=== PATIENT | female | born 1975 | race Two or more races ===

== ENCOUNTER → 2024-02-18 | Outpatient (CLI) | payer BC, SELFPAY ==
--- NOTE | 2024-02-18 09:15 | XR_ITS ---
Examination: Screening digital mammography, bilateral Computer aided detection 3-D breast Tomosynthesis, bilateral Date and time of exam: February 18, 2024 0903 hours Compared to mammograms dating to March 31, 2017 Indication: Screening Technique: Nonmagnified MLO, CC views of the breasts to been obtained, reconstructed from 3-D Tomosynthesis images. R2 computer aided detection program utilized for evaluation of suspicious masses and/or abnormal calcifications. 3-D Tomosynthesis images obtained. Findings: Scattered areas of fibroglandular density. Benign calcifications No interval suspicious masses Impression: BI-RADS category II: Benign Findings. Recommend 1 year follow-up mammogram.
[2024-02-18 10:40] LABS: Glucose Estimated Average 108 mg/dL (80-131); Hemoglobin A1C 5.4 % Hgb (4.8-6.0)
[2024-02-18 10:47] LABS: Alanine Aminotransferase 24 U/L (10-49); Albumin, Serum 4.3 gm/dL (3.5-5.0); Albumin/Globulin Ratio 1.4 (1.2-2.2); Alkaline Phosphatase 92 U/L (46-116); Anion Gap 5 (7-16); Aspartate Amino Transferase 16 U/L (0-34); BUN/Creatinine Ratio 22 Ratio (12-20); Bilirubin,Total 0.5 mg/dL (0.3-1.2); Blood Urea Nitrogen 13 mg/dL (9-23); Cardiac Risk Estimate 4.5 RATIO (3.7-5.6); Chloride 104 mMol/L (98-107); Cholesterol 153 mg/dL (132-200); Creatinine (Component) 0.6 mg/dL (0.6-1.3); Free T4 (Free Thyroxine) 1.36 ng/dL (0.89-1.76); Globulin 3.1 gm/dL (2.3-3.5); Glucose 95 mg/dL (74-106); HDL Cholesterol 34 mg/dL (40-60); LDL Cholesterol,Calculated 91 mg/dL (0-130); Osmolality,Calculated 272 (275-295); Potassium 4.2 mMol/L (3.4-5.1); Sodium 136 mMol/L (136-145); Thyroid Stimulating Hormone 0.54 uIU/mL (0.55-4.78); Total Protein 7.4 gm/dL (5.7-8.2); Triglycerides 140 mg/dL (30-150); eGFR > 60 See Note
[2024-02-18 11:13] LABS: Creatinine MALB Rnd Ur 136 mg/dL (30-125); Microalbumin Creat Ratio 38 mg/gCrea (<30); Microalbumin, Random Urine 51 mg/L (0-300)
== END | disposition home or self-care (01) ==
LOC: CDIM 08:52 → COPL 09:11
PROVIDERS: PCP Specialist; Referring Provider Specialist; Visit Provider Specialist
DX: Z12.31 Encounter for screening mammogram for malignant neoplasm of breast (principal); R92.323 Mammographic fibroglandular density, bilateral breasts; R92.1 Mammographic calcification found on diagnostic imaging of breast; E11.65 Type 2 diabetes mellitus with hyperglycemia; E03.8 Other specified hypothyroidism; E78.2 Mixed hyperlipidemia
CPT/HCPCS: 36415; 77063; 77067; 80053; 80061; 82043; 82570; 83036; 84439; 84443

== ENCOUNTER → 2024-03-03 | Outpatient (CLI) | payer BC, SELFPAY ==
--- NOTE | 2024-03-03 14:18 | XR_ITS ---
Examination: Shoulder,left, 3 views Technique: Shoulder AP internal rotation, AP external rotation, Y view shoulder, 3 views Exam date and time :March 03, 2024 1506 hours INDICATIONS: Left shoulder pain beginning 3 years ago. FINDINGS: Moderate osteopenia No shoulder fracture or dislocation Moderate narrowing glenohumeral joint Mild calcific tendinitis IMPRESSION: Moderate narrowing glenohumeral joint Mild calcific tendinitis
--- NOTE | 2024-03-03 14:19 | XR_ITS ---
Examination: Left elbow 3 views Technique: Elbow AP, oblique, lateral 3 views Exam date and time: March 03, 2024 1506 hours INDICATIONS: Left elbow pain beginning 6 years ago. FINDINGS: Mild elbow osteoarthritis Old bone density near the medial aspect of the ulna Lateral elbow epicondylitis, ossification lateral humeral condyle No acute fracture IMPRESSION: Mild elbow osteoarthritis Lateral elbow epicondylitis.
== END | disposition home or self-care (01) ==
PROVIDERS: PCP Specialist; Referring Provider Specialist; Visit Provider Specialist
DX: M25.812 Other specified joint disorders, left shoulder (principal); M75.32 Calcific tendinitis of left shoulder; M19.022 Primary osteoarthritis, left elbow; M77.12 Lateral epicondylitis, left elbow
CPT/HCPCS: 73030; 73080

== ENCOUNTER → 2024-07-01 | Outpatient (CLI) | payer BC, SELFPAY ==
[2024-07-01 10:26] LABS: Basophils % (Auto) 1 % (0-2.5); Eosinophils # (Auto) 0.1 Thou/mm3 (0.0-0.5); Eosinophils % (Auto) 1 % (0-10); Hematocrit 35.6 % (36.0-46.0); Hemoglobin 11.7 g/dL (12.0-16.0); Immature Granulocytes % (Auto) 0 % (0-0); Immature Granulocytes Auto 0.01 Thou/mm3 (0.00-0.00); Lymphocytes # (Auto) 1.2 Thou/mm3 (1.0-4.8); Lymphocytes % (Auto) 30 % (10-50); Mean Corpuscular HGB Conc 32.9 g/dl (31.0-37.0); Mean Corpuscular Hemoglobin 27.7 pg (25.0-35.0); Mean Corpuscular Volume 84 fL (80-100); Monocytes # (Auto) 0.3 Thou/mm3 (0.0-0.8); Monocytes % (Auto) 6 % (0-12); Neutrophils # (Auto) 2.6 Thou/mm3 (1.8-7.7); Neutrophils % (Auto) 62 % (37-80); Nucleated Red Blood Cell % 0 /100 WBC (0); Platelet Count 157 Thou/mm3 (140-440); RDW Standard Deviation 45.1 fL (36.4-46.3); Red Blood Count 4.23 Miln/mm3 (4.00-5.20); White Blood Count 4.2 Thou/mm3 (3.6-11.0)
[2024-07-01 10:36] LABS: Glucose Estimated Average 105 mg/dL (80-131); Hemoglobin A1C 5.3 % Hgb (4.8-6.0); Parathyroid Hormone Intact 59.3 pg/ml (18.5-88.0)
[2024-07-01 10:43] LABS: Creatinine MALB Rnd Ur 124 mg/dL (30-125); Microalbumin Creat Ratio 33 mg/gCrea (<30); Microalbumin, Random Urine 41 mg/L (0-300)
[2024-07-01 12:10] LABS: Alanine Aminotransferase 26 U/L (10-49); Albumin, Serum 4.1 gm/dL (3.5-5.0); Albumin/Globulin Ratio 1.5 (1.2-2.2); Alkaline Phosphatase 88 U/L (46-116); Anion Gap 7 (7-16); Aspartate Amino Transferase 19 U/L (0-34); BUN/Creatinine Ratio 25 Ratio (12-20); Bilirubin,Total 0.5 mg/dL (0.3-1.2); Blood Urea Nitrogen 15 mg/dL (9-23); Calcium 8.4 mg/dL (8.3-10.6); Calcium (Corrected) 8.4 mg/dL (8.5-10.1); Carbon Dioxide 28.1 mMol/L (20.0-31.0); Cardiac Risk Estimate 4.1 RATIO (3.7-5.6); Chloride 106 mMol/L (98-107); Cholesterol 159 mg/dL (132-200); Creatinine (Component) 0.6 mg/dL (0.6-1.3); Free T3 3.7 pg/mL (2.3-4.2); Free T4 (Free Thyroxine) 1.57 ng/dL (0.89-1.76); Globulin 2.8 gm/dL (2.3-3.5); Glucose 95 mg/dL (74-106); HDL Cholesterol 39 mg/dL (40-60); LDL Cholesterol,Calculated 101 mg/dL (0-130); Osmolality,Calculated 282 (275-295); Potassium 4.9 mMol/L (3.4-5.1); Sodium 141 mMol/L (136-145); Thyroid Stimulating Hormone 0.35 uIU/mL (0.55-4.78); Total Protein 6.9 gm/dL (5.7-8.2); Triglycerides 97 mg/dL (30-150); eGFR > 60 See Note
[2024-07-06 11:17] LABS: Thyroglobulin Antibodies <1 IU/mL (< OR = 1)
[2024-07-07 06:47] LABS: T3,Total* 111 ng/dL (76-181); Thyroglobulin 0.9 ng/mL; Vitamin D, 25-OH, D2 <4 ng/mL; Vitamin D, 25-OH, D3 19 ng/mL; Vitamin D, 25-OH, Total 19 ng/mL (30-100)
== END | disposition home or self-care (01) ==
LOC: COPL 09:09
PROVIDERS: PCP Specialist; Referring Provider Specialist; Visit Provider Internal Medicine Endocrinology, Diabetes & Metabolism
DX: E11.65 Type 2 diabetes mellitus with hyperglycemia (principal); E03.8 Other specified hypothyroidism; E78.2 Mixed hyperlipidemia; K76.0 Fatty (change of) liver, not elsewhere classified; E20.819 Hypoparathyroidism due to impaired parathyroid hormone secretion, unspecified; C73 Malignant neoplasm of thyroid gland; E20.9 Hypoparathyroidism, unspecified
CPT/HCPCS: 36415; 80053; 80061; 82043; 82105; 82306; 82570; 83036; 83970; 84432; 84439; 84443; 84480; 84481; 85025; 86800

== ENCOUNTER → 2024-07-13 | Outpatient (CLI) | payer BC, SELFPAY ==
--- NOTE | 2024-07-13 11:30 | XR_ITS ---
Examination: Thyroid sonography complete TECHNIQUE: Grayscale sonographic images thyroid lobes with color flow analysis Exam date and time: The 2024 1137 hours Comparison January 13, 2024 INDICATIONS: Diagnosis thyroid cancer thyroidectomy May 2023, post radiation therapy, restaging FINDINGS: No soft tissue mass in the thyroid bed No lymphadenopathy IMPRESSION: No soft tissue mass in the thyroid bed
== END | disposition home or self-care (01) ==
PROVIDERS: PCP Specialist; Referring Provider Internal Medicine Endocrinology, Diabetes & Metabolism; Visit Provider Internal Medicine Endocrinology, Diabetes & Metabolism
DX: C73 Malignant neoplasm of thyroid gland (principal)
CPT/HCPCS: 76536

== ENCOUNTER 2024-08-20 06:12 | Emergency (ER) | payer BC, SELFPAY ==
[2024-08-20 06:20] VITALS: BP 149/94; PULSE 81; RESP 18; TEMP 36.6; O2SAT 98
[2024-08-20 06:26] LABS: Collection Type, Urine Clean Catch
[2024-08-20 06:44] LABS: Bilirubin,Urine 1+ (Negative); Blood,Urine Trace (Negative); Clarity,Urine Clear (Clear/Hazy); Color,Urine Drk-Yellow (Lt Yel-Yel); Glucose, Urine Negative (Negative); Ketones,Urine Negative (Negative); Leukocyte Esterase,Urine Positive (Negative); Nitrite,Urine Positive (Negative); PH,Urine 6.5 (5.0-7.0); Protein,Urine 1+ (Neg - Trace); RBC,Urine 31 /hpf (0-3); Specific Gravity,Urine 1.012 (1.001-1.035); Squamous Epithelial Cell,Urine 1 /hpf (0-5); WBC,Urine 48 /hpf (0-5)
[2024-08-20 06:49] LABS: Culture Indicated,Urine Yes; HCG Qualitative,Urine Negative
--- NOTE | 2024-08-20 06:55 | EDNOTE_ITS ---
<Statement entered by Rhoda Stiles MD - 08/31/24 02:41> As co-signing physician, I was present and available for consult prn. I concur with the plan and care as documented by the midlevel provider. ED Female Urogenital RME/HPI General Chief complaint: Urogenital-Female Stated complaint: PAIN IN URINATION Time Seen by Provider: 08/20/24 06:19 Arrival date/time: 08/20/24 06:12 49-year-old female presents to the emergency department today for complaints of dysuria since midnight Limitations: no limitations Related Data Home Medications ?Medication ?Instructions ?Recorded ?Confirmed metformin 500 mg tablet 500 mg PO DAILY 04/19/1902/10 methimazole 10 mg tablet 10 mg PO DAILY 04/19/1905/22 Previous Rx's ?Medication ?Instructions ?Recorded bacitracin 500 unit/gram topical 1 applic topical BID PRN burn #28 01/09/24 ointment grams ibuprofen 600 mg tablet 600 mg PO Q6H PRN pain #30 t abs 01/09/24 ciprofloxacin HCl 500 mg tablet 500 mg PO BID 7 days # 14 tabs 08/20/24 ibuprofen 800 mg tablet 800 mg PO TID PRN pain #30 t abs 08/20/24 phenazopyridine 100 mg tablet 100 mg PO TID 2 days #6 tabs 08/20/24 (Pyridium) Allergies Allergy/AdvReac Type Severity Reaction Status Date / Time hydrocodone Allergy Mild TACHYCARCIA Verified 08/20/24 06:13 Review of Systems Review of Systems Systems Reviewed: All systems reviewed, normal except as documented Constitutional Constitutional: Reports system reviewed and no additional complaints, except as documented, Denies fever(s) and Denies headache(s) Eyes Eyes: Reports system reviewed and no additional complaints, except as documented and Denies blurry vision ENT Ears, Nose, Mouth, and Throat: Reports system reviewed and no additional complaints, except as documented, Denies headache(s), Denies nasal congestion and Denies nasal discharge Cardiovascular Cardiovascular: Reports system reviewed and no additional complaints, except as documented, Denies chest pain and Denies dyspnea Respiratory Respiratory: Reports system reviewed and no additional complaints, except as documented, Denies chest congestion, Denies cough and Denies dyspnea Gastrointestinal Gastrointestinal: Reports system reviewed and no additional complaints, except as documented and Denies abdominal pain Genitourinary Genitourinary: Reports system reviewed and no additional complaints, except as documented, Denies abnormal vaginal bleeding, Reports dysuria, Denies flank pain, Denies pelvic pain, Reports post void dribbling, Reports urinary urgency, Denies vaginal discharge, Denies vaginal dryness, Denies vaginal odor and Denies vaginal pruritus Integumentary/Breasts Skin/Breast: Reports system reviewed and no additional complaints, except as documented and Denies rash Neurologic Neurologic: Reports system reviewed and no additional complaints, except as documented, Reports as per HPI and Denies headache(s) Past Medical History Past Medical History NEUROLOGIC: Negative Neurological Disorders or Seizures CARDIAC: Negative Cardiac Disorders, Congestive Heart Failure, Edema or Cellulitis RESPIRATORY: Negative Chronic Obstructive Pulmonary Disease (COPD) GASTROINTESTINAL: Negative Gastrointestinal Disorders or Hepatitis GENITOURINARY: Positive Kidney Stones (15 YEARS AGO); Negative Genitourinary Disorders or Renal Disease REPRODUCTIVE: Positive Previous Pregnancies (A1) MUSCULOSKELETAL: Positive Carpal Tunnel Syndrome (BILATERAL); Negative Musculoskeletal Disorders ENDOCRINE: Positive Endocrine Disorders, Diabetes Mellitus Type 2 and Hypothyroidism; Negative Diabetes Mellitus Type 1 HEMATOLOGIC: Negative Blood Disorders OTHER HISTORY: Positive Hospitalization; Negative Autoimmune Disease, Shingles, Falls, Blood Transfusions, Blood Transfusion Reaction, Anesthesia Reactions, Chemotherapy, Radiation Therapy, MRSA, Chicken Pox, Measles, Mumps or Cancer Family History FAMILY HISTORY: Positive Family Cardiac Disorders (FATHER (MD),MOTHER (HTN)) and Family Surgery (MOTHER); Negative Family Psychiatric Problems, Family Respiratory Disorders, Family Gastrointestinal Problems, Family Cancer or Family Anesthesia Reaction Surgical History SURGICAL: Positive Thyroidectomy, Hysterectomy and Section; Negative Cardiac Surgery or Pacemaker Social History SMOKING STATUS: Never smoker SUBSTANCE USE: does not use ED Exam General Limitations: Present no limitations General appearance: Present alert and in no apparent distress Head Head exam: Present atraumatic Eye Eye exam: Present normal appearance, PERRL and EOMI; Absent conjunctival injection ENT ENT exam: Present normal exam, normal oropharynx and mucous membranes moist Neck Neck exam: Present normal inspection, full ROM and trachea midline Chest Chest inspection: Present normal inspection and symmetric chest wall rise Respiratory Respiratory exam: Present normal lung sounds bilaterally Cardiovascular Cardiovascular exam: Present regular rate, normal rhythm and normal heart sounds Abdominal Exam Abdominal exam: Present soft and normal bowel sounds; Absent distention, tenderness, guarding, rebound or rigidity Extremities Exam Extremities exam: Present normal inspection and full ROM Back Exam Back exam: Present normal inspection and full ROM Neurological Exam Neurological exam: Present alert, oriented X3, CN II-XII intact, normal gait and reflexes normal; Absent motor sensory deficit Psychiatric Psychiatric exam: Present normal affect and normal mood Skin Skin exam: Present warm, dry, intact and normal color; Absent rash Course Quality Measures none Orders Category Date Time Status HCG Qualitative,Urine Stat Lab 08/20/24 06:23 Completed UA, C/S IF [Urinalysis, C/S if Indicated] Stat Lab 08/20/24 06:23 Completed Urine Culture Stat Lab 08/20/24 06:23 Received Ibuprofen Tab [Motrin Tab] Med 08/20/24 06:56 Once 800 mg PO X1 ONE Lidocaine 1% 20 ml [Xylocaine 1% 20 ML] Med 08/20/24 06:52 Discontinued 2.1 ml INFL X1 ONE cefTRIAXone [Rocephin] Med 08/20/24 06:52 Discontinued 1,000 mg IM X1 ONE Vital Signs Vital signs: Vital Signs Temperature 98 F 08/20/24 06:20 Pulse Rate 81 08/20/24 06:20 Respiratory Rate 18 08/20/24 06:20 Blood Pressure 149/94 H 08/20/24 06:20 Pulse Oximetry (%) 98 08/20/24 06:20 Oxygen Delivery Method Room Air 08/20/24 06:20 O2 saturation 98% room air within normal limits Urogenital - Female MDM Narrative MDM Narrative:: 49-year-old female presents to the emergency department today for complaints of dysuria since midnight Patient data External records reviewed:: [facility] [place] previous records Clinical information provided by:: patient Social determinants that could affect healthcare access:: none Patient has the following chronic illnesses:: None How is presenting disease/condition affected by chronic disease/condition?: no chronic disease Evaluation data The following diagnostics were reviewed and interpreted by me:: lab results Lab and/or radiology exams considered but not ordered:: Obtain Interpretation Summary: Reviewed by me Medications / Prescriptions Medications or Prescriptions considered but not ordered:: Given Medication administrations:: Medication Administration History Ibuprofen (Ibuprofen Tab 400 Mg Tablet) 800 mg PO X1 ONE Stop: 08/20/24 06:57 Discontinued Medications Ceftriaxone Sodium (Ceftriaxone Sod Inj 1,000 Mg Vial) 1,000 mg IM X1 ONE Stop: 08/20/24 06:53 Lidocaine HCl (Lidocaine Hcl 1% 20 Ml Vial) 2.1 ml INFL X1 ONE Stop: 08/20/24 06:53 Given Consultations Consultation(s) initiated? (list below): No Diagnosis Urogenital Female Differential Diagnosis: urinary tract infection and cystitis Most likely diagnosis given after review of the tests above:: UTI Admission Indicated Admission indicated?: not indicated Admission Request Was there a request for admission?: No Disposition Plan Disposition Plan: Discharge Discharge Attestation Discharge Attestation: The patient and all family members were given an opportunity to ask questions and understood the discharge instructions. Discharge instructions specifically effects, indications for sooner follow up or return to the emergency department, and the expected course of current diagnosis. Patient condition: Stable Discharge Plan Plan Patient Disposition: HOME (Self Care) Discharge Disposition comment: Stable Prescriptions/Referrals Prescriptions/Med Rec: New ibuprofen 800 mg tablet 800 mg PO TID PRN (Reason: pain) Qty: 30 0RF ciprofloxacin HCl 500 mg tablet 500 mg PO BID 7 Days Qty: 14 0RF phenazopyridine [Pyridium] 100 mg tablet 100 mg PO TID 2 Days Qty: 6 0RF No Action metformin 500 mg Tablet 500 mg PO DAILY methimazole 10 mg Tablet 10 mg PO DAILY bacitracin 500 unit/gram ointment 1 applic topical BID PRN (Reason: burn) Qty: 28 0RF ibuprofen 600 mg tablet 600 mg PO Q6H PRN (Reason: pain) Qty: 30 0RF Problem List Clinical Impression: UTI (urinary tract infection) Patient/Caregiver Discharge Instructions Education Materials: Understanding Urinary Tract ... Additional Instructions: Please follow up with your primary care doctor in the next 24-48hrs for any worsening symptoms return here immediately Print Language: Swedish Stand Alone Forms: Veronica Award Info., Patient Portal Info Letter PA/VIDEO [employer] FLOORMAN Supervising Physician PA/VIDEO [employer] FLOORMAN Supervising Physician: Dr stiles
[2024-08-20] MEDS: cefTRIAXone SOD INJ 1,000 MG VIAL 1000 MG IM (07:05)
[2024-08-20] MEDS: LIDOCAINE HCL 1% 20 ML VIAL 2.1 ML INFL (07:06)
[2024-08-20] MEDS: IBUPROFEN TAB 400 MG TABLET 800 MG PO (07:07)
== END 2024-08-20 08:53 | disposition home or self-care (01) ==
LOC: SERX 08:20
PROVIDERS: Nurse Practitioner Primary Care; Emergency Provider Emergency Medicine
DX: N39.0 Urinary tract infection, site not specified (principal)
CPT/HCPCS: 81001; 81025; 87086; 96372; 99283; J0696; J3490; A9270

== ENCOUNTER 2024-08-26 03:55 | Inpatient (IN) | payer BC, SELFPAY ==
[2024-08-26] VITALS (30 sets, daily range): BP systolic 84–120; BP diastolic 54–81; PULSE 58–101; RESP 2–21; TEMP 36.3–36.9; O2SAT 87–100; BMI 34.7
--- NOTE | 2024-08-26 04:39 | XR_ITS ---
Examination: CT abdomen with intravenous contrast CT pelvis with intravenous contrast 2-D coronal reconstructions 2-D sagittal reconstructions Date and time of exam:August 26, 2024 0950 hours Comparison May 18, 2022 INDICATIONS: Epigastric pain nausea vomiting bloody diarrhea today, history kidney stones. CTDI: vol (mGy) 9.45 DLP: (mGycm) 520 Technique: Multiple axial sections of the abdomen and pelvis have been obtained. 64 slice high-resolution scanner used. 3 mm axial sections have been obtained, post intravenous injection 60 cc [id number] 2-D sagittal, coronal reconstructions obtained. Low dose protocols were performed. One or more of the following dose reduction techniques were used; automated exposure control, adjustment of the mA and/or KV according to patient size, use of iterative reconstruction technique. Findings: No focal liver or splenic lesions No gallstones No pancreatic or adrenal mass 1 mm left renal calculi No hydronephrosis or ureteral calculi Normal appendix The entire colon shows wall thickening and hyperemia Retroverted uterus with thickened endometrial stripe No bladder calculi Mild inflammatory change right perianal axial image 234 IMPRESSION: Diffuse nonspecific colitis pattern Mild inflammatory change right perianal Tiny nonobstructing left renal calculi
--- NOTE | 2024-08-26 04:40 | EDRME_ITS ---
Rapid Medical Screening Exam [facility] Arrival date/time: 08/26/24 03:55 49F with history of DM and thyroid cancer (s/p resection) presents to ED with 2 days of bloody N/V and diarrhea, as well as upper ab pain. Patient was recently discharged with Cipro for UTI. Patient denies alcohol/drug use. Chief Complaint: Abdominal Pain Vital signs: Vital Signs Temperature 98.4 F 08/26/24 04:14 Pulse Rate 101 H 08/26/24 04:14 Respiratory Rate 19 08/26/24 04:14 Blood Pressure 100/71 08/26/24 04:14 Pulse Oximetry (%) 98 08/26/24 04:14 Oxygen Delivery Method Room Air 08/26/24 04:14
[2024-08-26] MEDS: PANTOPRAZOLE INJ 40 MG VIAL 80 MG IVP (05:32)
[2024-08-26 05:33] LABS: Lactate (Lactic Acid) 1.7 mMol/L (0.4-2.0)
[2024-08-26] MEDS: ONDANSETRON INJ 2 MG/ML INJ 2 ML 4 MG IV (05:34)
[2024-08-26] MEDS: SODIUM CHLORIDE 0.9% 1000 ML 1,000 ML 999 ML IV ×2 (05:35→09:34)
[2024-08-26 05:54] LABS: Partial Thromboplastin Time 22.9 Seconds (22.0-36.0); Prothrombin Time 11.2 Seconds (9.0-12.2)
[2024-08-26 06:00] LABS: Basophils % (Auto) 0 % (0-2.5); Eosinophils # (Auto) 0.1 Thou/mm3 (0.0-0.5); Eosinophils % (Auto) 1 % (0-10); Hematocrit 33.2 % (36.0-46.0); Hemoglobin 11.1 g/dL (12.0-16.0); Immature Granulocytes % (Auto) 1 % (0-0); Immature Granulocytes Auto 0.04 Thou/mm3 (0.00-0.00); Lymphocytes # (Auto) 1.4 Thou/mm3 (1.0-4.8); Lymphocytes % (Auto) 16 % (10-50); Mean Corpuscular HGB Conc 33.4 g/dl (31.0-37.0); Mean Corpuscular Hemoglobin 26.7 pg (25.0-35.0); Mean Corpuscular Volume 80 fL (80-100); Monocytes # (Auto) 0.3 Thou/mm3 (0.0-0.8); Monocytes % (Auto) 4 % (0-12); Neutrophils # (Auto) 6.5 Thou/mm3 (1.8-7.7); Neutrophils % (Auto) 78 % (37-80); Nucleated Red Blood Cell % 0 /100 WBC (0); Platelet Count 140 Thou/mm3 (140-440); Red Blood Count 4.15 Miln/mm3 (4.00-5.20); White Blood Count 8.4 Thou/mm3 (3.6-11.0)
[2024-08-26 06:27] LABS: Alanine Aminotransferase 20 U/L (10-49); Albumin/Globulin Ratio 1.5 (1.2-2.2); Alcohol, Blood Medical < 10.0 mg/dL (0-10.0); Alkaline Phosphatase 91 U/L (46-116); Anion Gap 13 (7-16); Aspartate Amino Transferase 17 U/L (0-34); BUN/Creatinine Ratio 30 Ratio (12-20); Bilirubin,Total 0.3 mg/dL (0.3-1.2); Blood Urea Nitrogen 21 mg/dL (9-23); Calcium 7.9 mg/dL (8.3-10.6); Calcium (Corrected) 7.9 mg/dL (8.5-10.1); Carbon Dioxide 24.2 mMol/L (20.0-31.0); Chloride 105 mMol/L (98-107); Creatinine (Component) 0.7 mg/dL (0.6-1.3); Globulin 2.7 gm/dL (2.3-3.5); Glucose 181 mg/dL (74-106); Lipase 54 U/L (12-53); Osmolality,Calculated 291 (275-295); Potassium 3.9 mMol/L (3.4-5.1); Procalcitonin < 0.04 ng/ml (0.0-0.49); Sodium 142 mMol/L (136-145); Total Protein 6.7 gm/dL (5.7-8.2); eGFR > 60 See Note
--- NOTE | 2024-08-26 07:29 | EDNOTE_ITS ---
ED General RME/HPI General Chief complaint: Abdominal Pain Stated complaint: ABD PAIN, VOMITING BLOOD FOR AN HOUR Time Seen by Provider: 08/26/24 04:52 Arrival date/time: 08/26/24 03:55 RME / HPI RME / HPI narrative: 08/26/24 03:55 49F with history of DM and thyroid cancer (s/p resection) presents to ED with 2 days of bloody N/V and diarrhea, as well as upper ab pain. Patient was recently discharged with Cipro for UTI. Patient denies alcohol/drug use. DR. HICKEY MAIN ED EVALUATION: 49 year old female presents to the Emergency Department accompanied by her with complaints of nausea, vomiting x4 episodes, diarrhea x2 episodes onset 2 AM today. There is blood in the vomit. She also mentions that she had upper abdominal pain, mainly in the left lower quadrant area. Pain was burning and rated moderate. Patient states yesterday, she was normal, no symptoms. Last meal was last night when she had [employer] for dinner; her whole family had the same food but only the patient was sick at night. Denies any ASA, aleve, or other blood thinners. PMHx: Diabetes takes Ozempic. Social Hx: No tobacco, alcohol, or substance use. Related Data Home Medications ?Medication ?Instructions ?Recorded ?Confirmed metformin 500 mg tablet 500 mg PO DAILY 04/19/1902/10 methimazole 10 mg tablet 10 mg PO DAILY 04/19/1905/22 Previous Rx's ?Medication ?Instructions ?Recorded bacitracin 500 unit/gram topical 1 applic topical BID PRN burn #28 01/09/24 ointment grams ibuprofen 600 mg tablet 600 mg PO Q6H PRN pain #30 t abs 01/09/24 ciprofloxacin HCl 500 mg tablet 500 mg PO BID 7 days # 14 tabs 08/20/24 ibuprofen 800 mg tablet 800 mg PO TID PRN pain #30 t abs 08/20/24 Allergies Allergy/AdvReac Type Severity Reaction Status Date / Time hydrocodone Allergy Mild TACHYCARCIA Verified 08/26/24 03:56 Review of Systems Review of Systems Systems Reviewed: All systems reviewed, normal except as documented Past Medical History Past Medical History GENITOURINARY: Positive Kidney Stones REPRODUCTIVE: Positive Previous Pregnancies MUSCULOSKELETAL: Positive Carpal Tunnel Syndrome ENDOCRINE: Positive Endocrine Disorders, Diabetes Mellitus Type 2 and Hypothyroidism OTHER HISTORY: Positive Hospitalization Family History FAMILY HISTORY: Positive Family Cardiac Disorders and Family Surgery Surgical History SURGICAL: Positive Thyroidectomy, Hysterectomy and Section Social History SMOKING STATUS: Never smoker SUBSTANCE USE: does not use ALCOHOL: Never ED Exam Narrative Physical exam: GENERAL APPEARANCE: AxOx4, generally well-appearing, in moderate pain distress. HEENT: NC, AT. MMM. EOMI, clear conjunctiva, oropharynx clear. NECK: Supple without lymphadenopathy. No stiffness or restricted ROM. HEART: Normal rate and regular rhythm, normal S1/S1, no m/r/g LUNGS: CTAB, moving air well. No crackles or wheezes are heard. ABDOMEN: Mild left upper quadrant tenderness. No guarding. Good bowel sounds heard. BACK: No midline C/T/L spine pain or deformity, No CVAT, no obvious deformity. EXTREMITIES: Without cyanosis, clubbing or edema. MUSCULOSKELETAL: FROM of all major joints, no chest tenderness NEUROLOGICAL: Grossly nonfocal. Alert and oriented, moving all 4 extremities. CN not formally tested but appear grossly intact. Skin: Warm and dry without any rash. Course Quality Measures none Orders Category Date Time Status CT Screening NOW Care 08/26/24 04:39 Active Occult Blood,Stool (Nursing) NOW Care 08/26/24 04:39 Active Occult blood,Gastric (Nursing) NEEDED Care 08/26/24 07:30 Active Consult to Gastroenterology Stat Cons 08/26/24 10:[address] abdomen pelvis w con Stat Exams 08/26/24 04:39 Completed Alcohol, Blood Medical Stat Lab 08/26/24 05:08 Completed CBC Stat Lab 08/26/24 05:08 Completed CMP [Comprehensive Metabolic Panel] Stat Lab 08/26/24 05:08 Completed Drug Screen,Urine Stat Lab 08/26/24 08:29 Completed HCG Qualitative,Urine Stat Lab 08/26/24 08:29 Completed Hemoglobin and Hematocrit Stat Lab 08/26/24 08:50 Completed INR [Prothrombin Time with INR] Stat Lab 08/26/24 05:08 Completed Lactate (Lactic Acid) Stat Lab 08/26/24 05:08 Completed Lipase Stat Lab 08/26/24 05:08 Completed PTT [Partial Thromboplastin Time] Stat Lab 08/26/24 05:08 Completed Procalcitonin Stat Lab 08/26/24 05:08 Completed Stool Culture Stat Lab 08/26/24 04:40 Ordered Stool for WBCs Stat Lab 08/26/24 04:40 Ordered Type and Screen Stat Lab 08/26/24 05:08 Completed Urinalysis, C/S if Indicated Stat Lab 08/26/24 08:29 Completed Ondansetron Inj [Zofran Inj] Med 08/26/24 04:39 Discontinued 4 mg IV X1 ONE Ondansetron Inj [Zofran Inj] Med 08/26/24 08:45 Discontinued 4 mg IVP X1 ONE Pantoprazole Inj [Protonix Inj] Med 08/26/24 04:39 Discontinued 80 mg IVP X1 ONE Pantoprazole/Ns 80Mg IV Premix [Protonix/NS 80mg IV Med 08/26/24 07:49 Active Premix] 80 mg in 100 ml IV X1 Sodium Chloride 0.9% 1000 ml [Ns] 1,000 ml Med 08/26/24 04:39 Discontinued IV 999 mls/hr Sodium Chloride 0.9% 1000 ml [Ns] 1,000 ml Med 08/26/24 08:45 Discontinued IV 999 mls/hr Vital Signs Vital signs: Vital Signs Temperature 98.4 F 08/26/24 04:14 Pulse Rate 101 H 08/26/24 04:14 Respiratory Rate 19 08/26/24 04:14 Blood Pressure 100/71 08/26/24 04:14 Pulse Oximetry (%) 98 08/26/24 04:14 Oxygen Delivery Method Room Air 08/26/24 04:14 Discharge Plan Plan Patient Disposition: Admit Acute Care w/in Hospital Prescriptions/Referrals Prescriptions/Med Rec: No Action metformin 500 mg Tablet 500 mg PO DAILY methimazole 10 mg Tablet 10 mg PO DAILY bacitracin 500 unit/gram ointment 1 applic topical BID PRN (Reason: burn) Qty: 28 0RF ibuprofen 600 mg tablet 600 mg PO Q6H PRN (Reason: pain) Qty: 30 0RF ibuprofen 800 mg tablet 800 mg PO TID PRN (Reason: pain) Qty: 30 0RF ciprofloxacin HCl 500 mg tablet 500 mg PO BID 7 Days Qty: 14 0RF Referrals: Ivan Yu MD [Primary Care Provider] - In 1 week Problem List Clinical Impression: Upper gastrointestinal bleeding Patient/Caregiver Discharge Instructions Print Language: Tamazight Stand Alone Forms: Veronica Award Info., Patient Portal Info Letter MDM Narrative [facility] hospital course: I, Shannan Olivarez, am scribing for and in the presence of Dr. Hickey. Clinical Information Provided by patient and spouse Medical Records Reviewed [facility] Reviewed last ED visit dated 08/20/24 discharged with the following: UTI. Meds/Rx Considered, not Ordered None Labs/Rad/Tests considered, not Ordered None Chronic Illness/Social Conditions Add or document further as needed: PMHx: Diabetes takes Ozempic. Social Hx: No tobacco, alcohol, or substance use. Lab Interpretation Labs: interpreted by me Imaging Radiology reports / interpretation(s): Procedure(s): CT abdomen pelvis w con Accession Number(s): [id number] cc: Ivan Yu MD; Daniel Jesus MD; Markell Casillas PA-C~ Examination: CT abdomen with intravenous contrast CT pelvis with intravenous contrast 2-D coronal reconstructions 2-D sagittal reconstructions Date and time of exam:August 26, 2024 0950 hours Comparison May 18, 2022 INDICATIONS: Epigastric pain nausea vomiting bloody diarrhea today, history kidney stones. CTDI: vol (mGy) 9.45 DLP: (mGycm) 520 Technique: Multiple axial sections of the abdomen and pelvis have been obtained. 64 slice high-resolution scanner used. 3 mm axial sections have been obtained, post intravenous injection 60 cc [id number] 2-D sagittal, coronal reconstructions obtained. Low dose protocols were performed. One or more of the following dose reduction techniques were used; automated exposure control, adjustment of the mA and/or KV according to patient size, use of iterative reconstruction technique. Findings: No focal liver or splenic lesions No gallstones No pancreatic or adrenal mass 1 mm left renal calculi No hydronephrosis or ureteral calculi Normal appendix The entire colon shows wall thickening and hyperemia Retroverted uterus with thickened endometrial stripe No bladder calculi Mild inflammatory change right perianal axial image 234 IMPRESSION: Diffuse nonspecific colitis pattern Mild inflammatory change right perianal Tiny nonobstructing left renal calculi Dictated By: Daniel Jesus MD Medication Administration(s) Medication Administration History Pantoprazole Sodium (Protonix/Ns 80mg Iv Premix) 80 mg in 100 mls @ 10 mls/hr IV X1 ONE Stop: 08/26/24 17:48 Last Admin: 08/26/24 09:35 Dose: 10 mls/hr Documented By: CG Discontinued Medications Sodium Chloride (Ns) 1,000 mls @ 999 mls/hr IV .Q1H1M ONE Stop: 08/26/24 05:39 Last Infusion: 08/26/24 07:01 Dose: Infused Documented By: Admin: 08/26/24 05:35 Dose: 999 mls/hr Documented By: KARINA Sodium Chloride (Ns) 1,000 mls @ 999 mls/hr IV .Q1H1M ONE Stop: 08/26/24 09:45 Last Admin: 08/26/24 09:34 Dose: 999 mls/hr Documented By: LINDA Ondansetron HCl (Ondansetron Inj 2 Mg/Ml Inj 2 Ml) 4 mg IV X1 ONE; Protocol Stop: 08/26/24 04:40 Last Admin: 08/26/24 05:34 Dose: 4 mg Documented By: KARINA Ondansetron HCl (Ondansetron Inj 2 Mg/Ml Inj 2 Ml) 4 mg IVP X1 ONE; Protocol Stop: 08/26/24 08:46 Last Admin: 08/26/24 09:34 Dose: 4 mg Documented By: LINDA Pantoprazole Sodium (Pantoprazole Inj 40 Mg Vial) 80 mg IVP X1 ONE Stop: 08/26/24 04:40 Last Admin: 08/26/24 05:32 Dose: 80 mg Documented By: KARINA Consultations/Discussions re: Management Consult #1: Date/time: 08/26/24 10:28 am Physician, specialty, service, details: Discussed test HPI, PMHx, lab, radiology results and/or management with Dr. Lyman. Will consult an admission to the hospitalist. Consult #2: Date/time: 08/26/24 11:24 am Physician, specialty, service, details: Discussed test HPI, PMHx, lab, radiology results and/or management with resident working with the hospitalist, team C. Will admit for further evaluation and management. Accepts patient for admission. Diagnosis Differential diagnosis: Upper GI bleed, lower GI bleed, GERD Most likely dx, and/or detailed dx discussion: Upper GI bleed Dispositon Disposition: Admit
--- NOTE | 2024-08-26 07:43 | PC.NURSE ---
[facility]astro[facility] Grossly Heme Positive
[2024-08-26 08:51] LABS: Collection Type, Urine Clean Catch
[2024-08-26 09:05] LABS: HCG Qualitative,Urine Negative
[2024-08-26 09:08] LABS: Hematocrit 30.9 % (36.0-46.0)
[2024-08-26 09:11] LABS: Amphetamine/Methamp Scrn,U Negative (Negative); Barbiturate Screen,Urine Negative (Negative); Benzodiazepines Screen,Urine Negative (Negative); Benzoylecgonine Screen, Ur Negative (Negative); Fentanyl Screen,Urine Negative (Negative); Opiate Screen,Urine Negative (Negative); THC Screen,Urine Negative (Negative)
[2024-08-26 09:12] LABS: Bacteria,Urine 4+; Bilirubin,Urine Negative (Negative); Blood,Urine 2+ (Negative); Color,Urine Lt-Yellow (Lt Yel-Yel); Culture Indicated,Urine Contaminated; Glucose, Urine Negative (Negative); Hyaline Casts,Urine < 1 /hpf (0-1); Ketones,Urine Negative (Negative); Leukocyte Esterase,Urine Positive (Negative); Nitrite,Urine Negative (Negative); PH,Urine 7.5 (5.0-7.0); Protein,Urine Negative (Neg - Trace); RBC,Urine 4 /hpf (0-3); Specific Gravity,Urine 1.014 (1.001-1.035); Squamous Epithelial Cell,Urine 30 /hpf (0-5); Urobilinogen,Urine Negative mg/dL (0.0-1.0); WBC,Urine 3 /hpf (0-5)
[2024-08-26 09:25] LABS: Clarity,Urine Hazy (Clear/Hazy)
[2024-08-26] MEDS: ONDANSETRON INJ 2 MG/ML INJ 2 ML 4 MG IVP ×2 (09:34→16:59)
[2024-08-26] MEDS: PANTOPRAZOLE/NS 80MG IV PREMIX 80 MG/100 ML BAG 10 MG IV ×2 (09:35→19:56)
--- NOTE | 2024-08-26 11:32 | ESHP_ITS ---
<Statement entered by Mikel Lloyd MD - 08/26/24 21:54> I discussed with and supervised the internet media planner physician involved in the care of this patient. Patient assessment and plan was discussed with entire medicine team, including my attending. I agree with the assessment and plan as documented by internet media planner doctor. Patient care was discussed with my attending physician Dr.Tingle Mikel Lloyd, PGY-2 Documentation for date of: 08/26/24 HPI History of Present Illness History of present illness: This is a 49-year-old female with PMHx of T2DM, thyroid cancer s/p thyroidectomy presented to ED with acute onset of bloody emesis and diarrhea. Her symptoms started at 2 AM this morning when she started having uncontrolled episode of emesis, about 4-5 containing what she describes as chunks of clotted blood. Associated with that are ongoing diarrhea, reports 3 episodes of watery, nonbloody diarrhea overnight, continue to have diarrhea while in ED. Reports dull epigastric and LUQ pain, nonradiating, about 3-4 out of 10 in intensity. Denies fever, headache, chills, chest pain, shortness of breath, constipation, bloody or dark stool, recent travel, sick exposure, generalized weakness, skin rashes or focal neurological deficits. Denies previous or current alcohol, drug or tobacco use. Her last meal was last night, she consumed [place] with her family. No one else in the family reporting symptoms. Denies any food or drug allergies. She has been on OZEMPIC for 2 years, usually tolerates it very well, unlikely to be related to presentation. Last week she was prescribed CIPRO for UTI which she has been taking, urinary symptoms resolved. Patient she was prescribed IBUPROFEN, patient hasn't taking any. Also denies taking IBUPROFEN/ADVIL or TYLENOL in the past recently. She has a family history of colon cancer in her grandmother, she had a normal colonoscopy last year. Never been diagnosed with any GI disorder including GERD, acid reflux, IBD or IBS. Also denies previous GI symptoms in the past. No family history of autoimmune disease. PMHx: As above. PSHx: Thyroid resection, 2 , 2 natural , carpal tunnel repair, hysterectomy. MEDS: LEVOTHYROXINE 25 mcg, VITAMIN D 1250 mg, OZEMPIC weekly injections - pending remaining med rec. ALLERGIES: NORCO (tachycardia) FHx: Grandmother with colon cancer. SHx: Denies alcohol, drug, or drug use. ED COURSE: * Afebrile, BP 100/71, HR 101, RR 19, satting 98% on room air. * Hgb 11.7 > 10.0, WBC and PLT. * Normal coag studies. * Lipase 54, GLUCOSE 181, corrected calcium 7.9, major CMP WNL. * UA showing 4+ bacteria, 4 RBCs, positive LE, 2+ blood, pH 7.5. * U-Tox negative. * CT abdomen showed diffuse nonspecific colitis, mild inflammatory change in right peroneal, tiny nonobstructive left renal calculi. She received 2 L NS bolus and ANTIEMETIC in ED. GI was consulted who recommended EGD later today. Review of Systems Review of Systems Narrative Review of Systems: 12 point system review negative except for above mentioned. Exam Vital Signs Temp Pulse Resp BP Pulse Ox O2 Del Method 98.1 F 71 18 92/54 L 97 Room Air 08/26/24 08:36 08/26/24 08:36 08/26/24 08:36 08/26/24 08:36 08/26/24 08:36 08/26/24 08:36 Narrative Exam GENERAL * Normal appearing adult female, NAD. HEENT * NCAT.?JERRY. Oral mucosa is moist. Patent Nares NECK * Supple, nontender, no thyromegaly, no meningismus, no JVD, no step offs CHEST * RRR, no m/g/r * CTAB, no w/r/r. Symmetrical chest rise. No intercostal subcostal retraction * Atraumatic, nontender, no crepitus, symmetrical expansion. ABDOMEN * Soft, obese, mildly tender in the epigastrium and LUQ. * No guarding/rebound tenderness/masses. * Bowel sounds presents EXTREMITIES * No edema/cyanosis.? SKIN * Warm and dry, no jaundice/rashes. NEUROMUSCULAR * No lumbar or midline, no CVA, no paraspinal muscle spasm or tenderness. * Moves all 4 extremities well, with full ROM and good CSM. * PAT x4, CN II-XII grossly intact. * No focal neurologic deficits. PSYCHIATRY * Normal mood and affect, cooperative, no SI or HI or hallucinations. Results: Labs 08/28/24 05:20 08/28/24 05:20 Labs: Short CBC 08/26/24 08/26/24 Range/Units 05:08 08:50 WBC 8.4 (3.6-11.0) Thou/mm3 Hgb 11.1 L 10.0 L (12.0-16.0) g/dL Hct 33.2 L 30.9 L (36.0-46.0) % Plt Count 140 (140-440) Thou/mm3 BMP 08/26/24 05:08 Sodium 142 Potassium 3.9 Chloride 105 Carbon Dioxide 24.2 BUN 21 Creatinine 0.7 Glucose 181 H Calcium 7.9 L Liver Function 08/26/24 Range/Units 05:08 Total Bilirubin 0.3 (0.3-1.2) mg/dL AST 17 (0-34) U/L ALT 20 (10-49) U/L Alkaline Phosphatase 91 (46-116) U/L Albumin 4.0 (3.5-5.0) gm/dL Urine 08/26/24 Range/Units 08:29 Urine Color Lt-Yellow (Lt Yel-Yel) Urine Clarity Hazy (Clear/Hazy) Urine pH 7.5 H (5.0-7.0) Ur Specific [place] 1.014 (1.001-1.035) Urine Protein Negative (Neg - Trace) Urine Glucose (UA) Negative (Negative) Quality Measures Quality Measures none Medications Home Medications and Allergies Home Medications ?Medication ?Instructions ?Recorded ?Confirmed ?Type levothyroxine 125 mcg tablet 125 mcg PO QDAY 08/27/24 08/27/24 History Allergies Allergy/AdvReac Type Severity Reaction Status Date / Time hydrocodone Allergy Mild TACHYCARCIA Verified 08/26/24 03:56 Visit Medications Acetaminophen (Acetaminophen 325 Mg Tablet) 650 mg PO Q6H PRN PRN Reason: PAIN SCALE 1-3 (mild Stop: 09/25/24 11:29 Acetaminophen (Acetaminophen 325 Mg Tablet) 650 mg PO Q6H PRN PRN Reason: Fever >100.4 Stop: 09/25/24 11:29 Hydrocodone Bitart/Acetaminophen (Hydrocodone/Apap 10/325 Tab) 1 tab PO Q4HR PRN PRN Reason: PAIN SCALE 7-10 (Severe Stop: 08/31/24 11:29 Pantoprazole Sodium (Protonix/Ns 80mg Iv Premix) 80 mg in 100 mls @ 10 mls/hr IV X1 ONE Stop: 08/26/24 17:48 Last Admin: 08/26/24 09:35 Dose: 10 mls/hr Ondansetron HCl (Ondansetron Inj 2 Mg/Ml Inj 2 Ml) 4 mg IVP Q6H PRN; Protocol PRN Reason: NAUSEA OR VOMITING Stop: 09/25/24 11:29 Oxycodone/Acetaminophen (Oxycodone/Apap 5/325 Tablet) 1 tab PO Q6H PRN PRN Reason: PAIN SCALE 4-6 (Moderate Stop: 08/31/24 11:29 Discontinued Medications Sodium Chloride (Ns) 1,000 mls @ 999 mls/hr IV .Q1H1M ONE Stop: 08/26/24 05:39 Last Infusion: 08/26/24 07:01 Dose: Infused Sodium Chloride (Ns) 1,000 mls @ 999 mls/hr IV .Q1H1M ONE Stop: 08/26/24 09:45 Last Admin: 08/26/24 09:34 Dose: 999 mls/hr Ondansetron HCl (Ondansetron Inj 2 Mg/Ml Inj 2 Ml) 4 mg IV X1 ONE; Protocol Stop: 08/26/24 04:40 Last Admin: 08/26/24 05:34 Dose: 4 mg Ondansetron HCl (Ondansetron Inj 2 Mg/Ml Inj 2 Ml) 4 mg IVP X1 ONE; Protocol Stop: 08/26/24 08:46 Last Admin: 08/26/24 09:34 Dose: 4 mg Pantoprazole Sodium (Pantoprazole Inj 40 Mg Vial) 80 mg IVP X1 ONE Stop: 08/26/24 04:40 Last Admin: 08/26/24 05:32 Dose: 80 mg Assessment & Plan Plan This is a 49-year-old female with PMHx of T2DM, thyroid cancer s/p thyroidectomy, admitted for acute episode of diarrhea, bloody emesis and abdominal pain. Appreciate recommendations from GI team. Acute upper GI bleed mild anemia Reports several episodes of bloody emesis that started tonight before admission, as stated below. Admission Hgb 11.7 > 2.0. PLT 140, normal coag studies. ? Type and screen ? Transfuse if Hgb <7 ? Daily labs Acute colitis versus gastritis Acute bloody emesis Acute diarrhea Concern for C. difficile Concern for pancreatitis Presenting with acute onset of bloody emesis and diarrhea started tonight before admission. Reports abdominal pain, 4?5 episodes of bloody emesis, +3 episodes of watery diarrhea. History of recent ANTIBIOTICS use for UTI symptoms which have resolved. Lipase minimally elevated, reports epigastric and LUQ pain. CT showed diffuse colitis and mild inflammatory changes in the right perianal region. Had normal colonoscopy 1 year ago. Denies NSAIDs use, alcohol use, tobacco use, previous similar symptoms, abnormal weight changes, new medications other than ANTIBIOTICS. Denies symptoms of GERD or acid reflux. No recent or previous PPI use. Received 2 L NS in ED. DDx: Acute colitis, gastritis, esophagitis, C. difficile, acute pancreatitis. No indication for ANTIBIOTICS at this time, afebrile and no leukocytosis. Will continue to monitor. ? Pain control, avoid NORCO 2/2 allergy ? Continue ANTIEMETICS ? Continue LR at 150 cc/H ? Pending C. difficile PCR ? Pending stool culture and WBC. ? N.p.o. for EGD later today. ? Pending further recommendations from GI Asymptomatic bacteriuria UA showing 4+ bacteria, 4 RBCs, positive LE, 2+ blood, pH 7.5. Recently treated with CIPRO for UTI. Currently asymptomatic. Afebrile, no leukocytosis. ? Will continue to monitor T2DM A1c 5.3 from 07/01/2024. GLUCOSE 181 on admission. ? INSULIN sliding scale ? Accu-Cheks Post-thyroidectomy hypothyroidism Hx thyroid carcinoma, thyroidectomy 2023 And history of thyroid cancer, thyroidectomy 2023, on home LEVOTHYROXINE 125 mcg. ? Continue LEVOTHYROXINE 93 MCG IV daily Health maintenance Diet: NPO GI prophylaxis: PROTONIX DVT prophylaxis: SCD Antibiotics: None CODE STATUS: Full code Disposition: Pending EGD, C. difficile, stool culture, GI recs. Case was discussed with attending physician and senior resident. Ck Henderson DO PGYI Attending Provider Attestation/Addendum After examination of the patient and review of the clinical data I feel that this patient needs admission to the hospital for further treatment/evaluation. I have discussed and was present for the essential components of the history, physical examination, diagnosis, and treatment plan with the resident. I agree with the patient's care as documented by the resident and amended herein by me. Sushant Beckett DO. Although this document has been carefully reviewed, there may still be some phonetic and other typographical errors. These errors are purely grammatical due to imperfections in the software program and should not be construed in any way to compromise the substance of the patient's medical care during this visit.
[2024-08-26] MEDS: RINGERS LACTATED 1000 ML 1,000 ML 150 ML IV (14:53)
[2024-08-26] MEDS: LEVOTHYROXINE INJ 100 mCg VIAL 93 MCG IV (14:58)
--- NOTE | 2024-08-26 15:41 | PC.CC ---
Patient is a 49 year-old female who presents to the hospital for UGB Anemia. Sara MULTANI made [id number] contact with patient. ASW introduced self, role, and reason for visit. Patient appeared alert and oriented to self, location, and situation. Patient was pleasant and engaged in initial assessment. Patient confirmed information on demographics and reports to living at home with her , Kristofer Hartman . Patient reports in the event she is unable to make her own medical decision her medical decision maker is her . Per patient, at home she is able to ambulate independently and complete her own ADLs . Patient does not require any DME. Patient is not a dialysis patient. Her primary provider is Ivan Yu and uses [facility] for prescription medications. Upon discharge the patient plans to return home. office services manager to follow up with any discharge needs.
[2024-08-26] MEDS: HYDROmorphone INJ 2 MG/ML VIAL 0.5 MG IVP (17:01)
[2024-08-26] MEDS: OCTREOTIDE ACET INJ 1,000 MCG in SODIUM CHLORIDE 0.9% 100 ML 5.1 MCG IV (19:55)
--- NOTE | 2024-08-26 20:35 | PD.IMCONS ---
HPI Data of Consult Requesting Physician: Napoleon Beckett DO Primary Care Provider: Ivan Yu MD Consult Narrative Reason for consult: hematemesis anemia blood loss History of present illness: 49 years of female presented with history of nausea vomiting bloody emesis and diarrhea Presenting hemoglobin hematocrit 11.1 and 33.2 which is gone down to 10.0 30.9 Platelet 140,000 and pro time INR 1.0 CT scan of the abdomen pelvis with contrast showed diffuse colitis Patient does have a history of thyroid carcinoma requiring subtotal thyroidectomy as a history of diabetes mellitus type 2 cc:: cc: Napoleon Beckett DO Review of Systems Review of Systems Systems Reviewed: All systems reviewed, normal except as documented Past Medical History Surgical History OTHER SURGICAL HX: Diabetes mellitus type 2 Hysterectomy x 2 Thyroidectomy for thyroid carcinoma Meds Home Medications and Allergies Home Medications ?Medication ?Instructions ?Recorded ?Confirmed ?Type metformin 500 mg tablet 500 mg PO DAILY 04/19/19 06/02/19 History methimazole 10 mg tablet 10 mg PO DAILY 04/19/19 06/02/19 History Allergies Allergy/AdvReac Type Severity Reaction Status Date / Time hydrocodone Allergy Mild TACHYCARCIA Verified 08/26/24 03:56 Exam Vital Signs Temp Pulse Resp BP Pulse Ox O2 Del Method 97.4 F 77 18 107/68 95 Room Air 08/26/24 16:52 08/26/24 17:30 08/26/24 17:30 08/26/24 17:30 08/26/24 17:30 08/26/24 16:52 Constitutional Comments: Alert oriented in the ICU Routine Respiratory Exam Comments: Normal to auscultation Routine Abdominal Exam Comments: Soft nontender Results Labs 08/26/24 08:50 08/26/24 05:08 Labs: Short CBC 08/26/24 08/26/24 Range/Units 05:08 08:50 WBC 8.4 (3.6-11.0) Thou/mm3 Hgb 11.1 L 10.0 L (12.0-16.0) g/dL Hct 33.2 L 30.9 L (36.0-46.0) % Plt Count 140 (140-440) Thou/mm3 BMP 08/26/24 05:08 Sodium 142 Potassium 3.9 Chloride 105 Carbon Dioxide 24.2 BUN 21 Creatinine 0.7 Glucose 181 H Calcium 7.9 L Liver Function 08/26/24 Range/Units 05:08 Total Bilirubin 0.3 (0.3-1.2) mg/dL AST 17 (0-34) U/L ALT 20 (10-49) U/L Alkaline Phosphatase 91 (46-116) U/L Albumin 4.0 (3.5-5.0) gm/dL Urine 08/26/24 Range/Units 08:29 Urine Color Lt-Yellow (Lt Yel-Yel) Urine Clarity Hazy (Clear/Hazy) Urine pH 7.5 H (5.0-7.0) Ur Specific [place] 1.014 (1.001-1.035) Urine Protein Negative (Neg - Trace) Urine Glucose (UA) Negative (Negative) Assessment and Plan Additional Assessment & Plan Additional Plan: # Hematemesis # Abnormal CT scan of the abdomen pelvis showing diffuse colitis # Diarrhea Plan Consent obtained for fiberoptic esophagogastroduodenoscopy with possible biopsy possible therapeutic intervention under intravenous moderate sedation Other medical problems include Diarrhea with diffuse colitis on CT scan imaging Stool culture and sensitivity Stool for C. difficile If negative consider fiberoptic colonoscopy with biopsy prior to discharge Will follow the patient Other medical problems include Diabetes mellitus type 2 Thyroid carcinoma status post thyroidectomy Thank you very much for the opportunity to participate in the care of this patient
[2024-08-27] VITALS (15 sets, daily range): BP systolic 113–148; BP diastolic 66–103; PULSE 62–138; RESP 12–18; TEMP 36.1–37; O2SAT 90–98; BMI 35.9
[2024-08-27] MEDS: PANTOPRAZOLE/NS 80MG IV PREMIX 80 MG/100 ML BAG 10 MG IV ×2 (05:25→14:33)
[2024-08-27 05:39] LABS: Basophils % (Auto) 0 % (0-2.5); Eosinophils # (Auto) 0.1 Thou/mm3 (0.0-0.5); Eosinophils % (Auto) 1 % (0-10); Hematocrit 26.8 % (36.0-46.0); Immature Granulocytes % (Auto) 0 % (0-0); Immature Granulocytes Auto 0.02 Thou/mm3 (0.00-0.00); Lymphocytes # (Auto) 1.9 Thou/mm3 (1.0-4.8); Lymphocytes % (Auto) 34 % (10-50); Mean Corpuscular HGB Conc 33.6 g/dl (31.0-37.0); Mean Corpuscular Volume 81 fL (80-100); Monocytes # (Auto) 0.3 Thou/mm3 (0.0-0.8); Monocytes % (Auto) 6 % (0-12); Neutrophils # (Auto) 3.3 Thou/mm3 (1.8-7.7); Neutrophils % (Auto) 58 % (37-80); Nucleated Red Blood Cell % 0 /100 WBC (0); Platelet Count 121 Thou/mm3 (140-440); RDW Standard Deviation 40.2 fL (36.4-46.3); Red Blood Count 3.33 Miln/mm3 (4.00-5.20); White Blood Count 5.7 Thou/mm3 (3.6-11.0)
[2024-08-27 06:01] LABS: Sed Rate (ESR) 15 mm/hr (0-20)
[2024-08-27 06:14] LABS: Alanine Aminotransferase 19 U/L (10-49); Albumin, Serum 3.5 gm/dL (3.5-5.0); Albumin/Globulin Ratio 1.5 (1.2-2.2); Alkaline Phosphatase 71 U/L (46-116); Anion Gap 11 (7-16); Aspartate Amino Transferase 17 U/L (0-34); BUN/Creatinine Ratio 13 Ratio (12-20); Bilirubin,Total 0.4 mg/dL (0.3-1.2); Blood Urea Nitrogen 8 mg/dL (9-23); C-Reactive Protein < 0.5 mg/dL (0.0-0.9); Calcium 7.5 mg/dL (8.3-10.6); Calcium (Corrected) 7.9 mg/dL (8.5-10.1); Carbon Dioxide 25.5 mMol/L (20.0-31.0); Chloride 107 mMol/L (98-107); Creatinine (Component) 0.6 mg/dL (0.6-1.3); Estimated Creatinine Clearance 114.8 mL/min (>60); Globulin 2.3 gm/dL (2.3-3.5); Glucose 94 mg/dL (74-106); Magnesium 1.8 mg/dL (1.6-2.6); Osmolality,Calculated 283 (275-295); Phosphorous 3.6 mg/dL (2.4-5.1); Sodium 143 mMol/L (136-145); Total Protein 5.8 gm/dL (5.7-8.2); eGFR > 60 See Note
--- NOTE | 2024-08-27 07:41 | ESPR_ITS ---
<Statement entered by Mikel Lloyd MD - 08/28/24 15:42> Overnight EGD showed esophagitis and erythema without sign of bleeding. Patient will undergo colonoscopy tomorrow. I discussed with and supervised the commissioner of internal revenue physician involved in the care of this patient. Patient assessment and plan was discussed with entire medicine team, including my attending. I agree with the assessment and plan as documented by commissioner of internal revenue doctor. Patient care was discussed with my attending physician Dr. Liang Lloyd, PGY-2 Documentation for date of: 08/27/24 Subjective Subjective Interval history: No acute overnight events. Reports feeling better this morning, no recurrent diarrhea or emesis during the last 24 hours, low suspicion for C. difficile, isolation lifted. Abdominal pain resolved. BP 143/93, likely 2/2 fluids were discontinued. Labs relatively unchanged except for dilutional anemia with Hgb 9.0. Cultures and immunology still pending. Continue n.p.o. for endoscopy later this afternoon. Exam Vital Signs Temp Pulse Resp BP Pulse Ox O2 Del Method 97.6 F 67 14 133/70 H 94 L Room Air 08/27/24 05:20 08/27/24 05:20 08/27/24 05:20 08/27/24 05:20 08/27/24 05:20 08/27/24 05:20 Narrative Exam GENERAL * Normal appearing adult female, NAD. HEENT * NCAT.?JERRY. Oral mucosa is moist. Patent Nares NECK * Supple, nontender, no thyromegaly, no meningismus, no JVD, no step offs CHEST * RRR, no m/g/r * CTAB, no w/r/r. Symmetrical chest rise. No intercostal subcostal retraction * Atraumatic, nontender, no crepitus, symmetrical expansion. ABDOMEN * Soft, obese, nontender, nondistended. * No guarding/rebound tenderness/masses. * Bowel sounds presents EXTREMITIES * No edema/cyanosis.? SKIN * Warm and dry, no jaundice/rashes. NEUROMUSCULAR * No lumbar or midline, no CVA, no paraspinal muscle spasm or tenderness. * Moves all 4 extremities well, with full ROM and good CSM. * PAT x4, CN II-XII grossly intact. * No focal neurologic deficits. PSYCHIATRY * Normal mood and affect, cooperative, no SI or HI or hallucinations. Objective Labs 08/28/24 05:20 08/28/24 05:20 Labs: Laboratory Results - last 24 hr 08/26/24 08/26/24 08/26/24 05:08 08:29 08:50 WBC RBC Hgb 10.0 L Hct 30.9 L MCV MCH MCHC RDW Std Deviation Plt Count Neut % (Auto) Lymph % (Auto) [place] % (Auto) Eos % (Auto) Baso % (Auto) Neut # (Auto) Lymph # (Auto) [place] # (Auto) Eos # (Auto) Baso # (Auto) Immature Gran # (Auto) Absolute Nucleated RBC Immature Gran % Nucleated RBC % ESR Sodium Potassium Chloride Carbon Dioxide Anion Gap BUN Creatinine Estim Creat Clear Calc eGFR BUN/Creatinine Ratio Glucose Calculated Osmolality Calcium Corrected Calcium Phosphorus Magnesium Total Bilirubin AST ALT Alkaline Phosphatase C-Reactive Prot, Quant Total Protein Albumin Globulin Albumin/Globulin Ratio Ur Collection Type Clean Catch Urine Color Lt-Yellow Urine Clarity Hazy Urine pH 7.5 H Ur Specific [place] 1.014 Urine Protein Negative Urine Glucose (UA) Negative Urine Ketones Negative Urine Blood 2+ A Urine Nitrite Negative Urine Bilirubin Negative Urine Urobilinogen (Auto) Negative Ur Leukocyte Esterase Positive Urine RBC 4 H Urine WBC 3 Ur Squamous Epith Cells 30 H Urine Bacteria 4+ A Hyaline Casts < 1 Ur Culture Indicated? Contaminated Urine HCG, Qual Negative Urine Opiates Screen Negative Urine Fentanyl Screen Negative Ur Barbiturates Screen Negative U Amphetamin/Meth Scrn Negative U Benzodiazepines Scrn Negative U Cocaine Metab Screen Negative U Marijuana (THC) Screen Negative Blood Type O Positive Antibody Screen NEGATIVE Blood Bank Wristband ID 08/26/24 08/27/24 12:50 04:49 WBC 5.7 RBC 3.33 L Hgb 9.0 L Hct 26.8 L MCV 81 MCH 27.0 MCHC 33.6 RDW Std Deviation 40.2 Plt Count 121 L Neut % (Auto) 58 Lymph % (Auto) 34 [place] % (Auto) 6 Eos % (Auto) 1 Baso % (Auto) 0 Neut # (Auto) 3.3 Lymph # (Auto) 1.9 [place] # (Auto) 0.3 Eos # (Auto) 0.1 Baso # (Auto) 0.0 Immature Gran # (Auto) 0.02 H Absolute Nucleated RBC 0.00 Immature Gran % 0 Nucleated RBC % 0 ESR 15 Sodium 143 Potassium 4.0 Chloride 107 Carbon Dioxide 25.5 Anion Gap 11 BUN 8 L Creatinine 0.6 Estim Creat Clear Calc 114.8 eGFR > 60 BUN/Creatinine Ratio 13 Glucose 94 D Calculated Osmolality 283 Calcium 7.5 L Corrected Calcium 7.9 L Phosphorus 3.6 Magnesium 1.8 Total Bilirubin 0.4 AST 17 ALT 19 Alkaline Phosphatase 71 D C-Reactive Prot, Quant < 0.5 Total Protein 5.8 Albumin 3.5 D Globulin 2.3 Albumin/Globulin Ratio 1.5 Ur Collection Type Urine Color Urine Clarity Urine pH Ur Specific [place] Urine Protein Urine Glucose (UA) Urine Ketones Urine Blood Urine Nitrite Urine Bilirubin Urine Urobilinogen (Auto) Ur Leukocyte Esterase Urine RBC Urine WBC Ur Squamous Epith Cells Urine Bacteria Hyaline Casts Ur Culture Indicated? Urine HCG, Qual Urine Opiates Screen Urine Fentanyl Screen Ur Barbiturates Screen U Amphetamin/Meth Scrn U Benzodiazepines Scrn U Cocaine Metab Screen U Marijuana (THC) Screen Blood Type Cancelled Antibody Screen Cancelled Blood Bank Wristband ID Cancelled Quality Measures Quality Measures none Assessment & Plan Assessment Current Active Medications: Generic Name Dose Route Start Last Admin Trade Name Freq PRN Reason Stop Dose Admin Acetaminophen 650 mg 08/26/24 11:30 Acetaminophen 325 Mg Tablet PO 09/25/24 11:29 Q6H PRN PAIN SCALE 1-3 (mild Acetaminophen 650 mg 08/26/24 11:30 Acetaminophen 325 Mg Tablet PO 09/25/24 11:29 Q6H PRN Fever >100.4 Dextrose 25 ml 08/26/24 12:00 Dextrose 50%-Water Inj 50 Ml Syringe IV 09/25/24 11:59 Q15MIN PRN BG 50-70 responsive npo pt Dextrose 50 ml 08/26/24 12:00 Dextrose 50%-Water Inj 50 Ml Syringe IV 09/25/24 11:59 Q15MIN PRN BG <50 OR BG <70 & pt unresponsive Glucagon 1 mg 08/26/24 12:00 Glucagon Inj 1 Mg Vial IM Q15MIN PRN BG <70, and no IV access Hydromorphone HCl 0.5 mg 08/26/24 11:59 08/26/24 17:01 Hydromorphone Inj 2 Mg/Ml Vial IVP 08/31/24 11:58 0.5 mg Q4HR PRN Administration PAIN SCALE 4-10(Mod-Sev Pantoprazole Sodium 80 mg in 100 mls @ 10 mls/hr 08/26/24 19:43 08/27/24 05:25 Protonix/Ns 80mg Iv Premix IV 08/29/24 17:42 10 mls/hr Q10H JOHN PAUL Administration Octreotide Acetate 1,000 mcg/ 102 mls @ 5.1 mls/hr 08/26/24 19:43 08/26/24 19:55 Sodium Chloride IV 08/31/24 19:43 50 mcg/hr .Q20H JOHN PAUL 5.1 mls/hr Administration Protocol 50 MCG/HR Insulin Human Lispro 0 unit 08/27/24 12:00 Insulin Lispro (Admelog) 1 Unit/0.01 Ml Unit SC 09/26/24 11:59 Q6HR JOHN PAUL Protocol Ondansetron HCl 4 mg 08/26/24 11:30 08/26/24 16:59 Ondansetron Inj 2 Mg/Ml Inj 2 Ml IVP 09/25/24 11:29 4 mg Q6H PRN Administration NAUSEA OR VOMITING Protocol Plan This is a 49-year-old female with PMHx of T2DM, thyroid cancer s/p thyroidectomy, admitted for acute episode of diarrhea, bloody emesis and abdominal pain. vital ok, hgb 11 > 9.0, CMP ok Appreciate recommendations from GI team. Acute upper GI bleed mild anemia (stable) Reports several episodes of bloody emesis that started tonight before admission, as stated below. Admission Hgb 11.7. PLT 140, normal coag studies. Today Hgb 9.0, likely dilutional, no recurrent episodes of bloody emesis or emesis in general. ? Type and screen ? Transfuse if Hgb <7 ? Daily labs Acute colitis versus gastritis Acute bloody emesis (resolved) Acute diarrhea (resolved) Concern for C. difficile (ruled out) Concern for pancreatitis (resolved) Presenting with acute onset of bloody emesis and diarrhea started tonight before admission. Reports abdominal pain, 4?5 episodes of bloody emesis, +3 episodes of watery diarrhea. History of recent ANTIBIOTICS use for UTI symptoms which have resolved. Lipase minimally elevated, reports epigastric and LUQ pain. CT showed diffuse colitis and mild inflammatory changes in the right perianal region. Had normal colonoscopy 1 year ago. Denies NSAIDs use, alcohol use, tobacco use, previous similar symptoms, abnormal weight changes, new medications other than ANTIBIOTICS. Denies symptoms of GERD or acid reflux. No recent or previous PPI use. DDx: Acute colitis, gastritis, esophagitis, C. difficile, acute pancreatitis. No indication for ANTIBIOTICS at this time, afebrile and no leukocytosis. Will continue to monitor. Adequately fluid resuscitatied, symptoms appear to have resolved. ? Pain control, avoid NORCO 2/2 allergy ? Continue ANTIEMETICS ? Pending stool culture and WBC. ? N.p.o. for EGD later today. ? Pending ANCA, anti-proteinase 3, anti-myeloperoxidase Asymptomatic bacteriuria UA showing 4+ bacteria, 4 RBCs, positive LE, 2+ blood, pH 7.5. Recently treated with CIPRO for UTI. Currently asymptomatic. Afebrile, no leukocytosis. ? Will continue to monitor T2DM A1c 5.3 from 07/01/2024. GLUCOSE 181 on admission. ? INSULIN sliding scale ? Accu-Cheks Post-thyroidectomy hypothyroidism Hx thyroid carcinoma, thyroidectomy 2023 And history of thyroid cancer, thyroidectomy 2023, on home LEVOTHYROXINE 125 mcg. ? Continue LEVOTHYROXINE 93 MCG IV daily Health maintenance Diet: NPO GI prophylaxis: PROTONIX DVT prophylaxis: SCDs Antibiotics: Not indicated CODE STATUS: Full code Disposition: Pending EGD Case was discussed with attending physician and senior resident. Ck Henderson DO PGYI Attending Provider Attestation/Addendum I, Christine Tavera DO, attest that I was physically present for the christina portions of the service and evaluated the patient with the resident and I reviewed and discussed the case with the resident and agree with the resident's findings and plans of care as documented above Patient seen and eval this a.m. Patient was admitted due to hematemesis. She states that she has never had this issue in the past. She had nausea yesterday which resulted in throwing up a large clot prior to coming to the hospital. She denies any melena otherwise. Patient did have diarrhea on presentation and she had been recently on antibiotics. She states that that she has no further episodes of diarrhea since admission. Abdominal pain appears to be improved. Will continue with current management anticipate EGD this evening and follow-up with results. Patient could likely be discharged within next 24 hours if she remains stable and findings are unremarkable.
--- NOTE | 2024-08-27 10:47 | CHAP ---
Visited by the Spiritual Care Volunteer and rolled oats mill operator who prayed for them. (Volunteer was in the hospital from 09:15-11:47)
[2024-08-27] MEDS: ONDANSETRON INJ 2 MG/ML INJ 2 ML 4 MG IVP ×2 (10:51→23:13)
[2024-08-27] MEDS: ACETAMINOPHEN 325 MG TABLET 650 MG PO (10:52)
[2024-08-27] MEDS: OCTREOTIDE ACET INJ 1,000 MCG in SODIUM CHLORIDE 0.9% 100 ML 5.1 MCG IV (12:40)
--- NOTE | 2024-08-27 19:15 | SUR.PHASEI ---
received pt and report from DAMON Leyva. pt sedated, but arousable to voice, vss, IV x2 intact, no s/s of redness or infiltration noted to sites. Abd soft on palpation. pt denies any pain.
--- NOTE | 2024-08-27 19:45 | SUR.PHASEI ---
pt recoverying well, vss, IV x2 remains intact and free of redness or infiltration. pt denies any pain. report given DAMON Granger
[2024-08-27] MEDS: NA SU/NAHCO3/KC/PEG (Golytely) 4,000 ML BTL 4000 ML PO (21:49)
[2024-08-28] VITALS (19 sets, daily range): BP systolic 104–143; BP diastolic 61–89; PULSE 54–747; RESP 14–20; TEMP 36.1–36.7; O2SAT 91–100; BMI 35.6
[2024-08-28 05:56] LABS: Basophils % (Auto) 1 % (0-2.5); Eosinophils # (Auto) 0.1 Thou/mm3 (0.0-0.5); Eosinophils % (Auto) 1 % (0-10); Hematocrit 25.9 % (36.0-46.0); Hemoglobin 8.9 g/dL (12.0-16.0); Immature Granulocytes % (Auto) 1 % (0-0); Immature Granulocytes Auto 0.03 Thou/mm3 (0.00-0.00); Lymphocytes # (Auto) 1.7 Thou/mm3 (1.0-4.8); Lymphocytes % (Auto) 25 % (10-50); Mean Corpuscular HGB Conc 34.4 g/dl (31.0-37.0); Mean Corpuscular Hemoglobin 27.5 pg (25.0-35.0); Mean Corpuscular Volume 80 fL (80-100); Monocytes # (Auto) 0.3 Thou/mm3 (0.0-0.8); Monocytes % (Auto) 5 % (0-12); Neutrophils # (Auto) 4.5 Thou/mm3 (1.8-7.7); Neutrophils % (Auto) 68 % (37-80); Nucleated Red Blood Cell % 0 /100 WBC (0); Platelet Count 121 Thou/mm3 (140-440); RDW Standard Deviation 40.1 fL (36.4-46.3); Red Blood Count 3.24 Miln/mm3 (4.00-5.20); White Blood Count 6.6 Thou/mm3 (3.6-11.0)
[2024-08-28 06:28] LABS: Alanine Aminotransferase 19 U/L (10-49); Albumin, Serum 3.8 gm/dL (3.5-5.0); Albumin/Globulin Ratio 1.7 (1.2-2.2); Alkaline Phosphatase 70 U/L (46-116); Anion Gap 10 (7-16); BUN/Creatinine Ratio 9 Ratio (12-20); Bilirubin,Total 0.4 mg/dL (0.3-1.2); Blood Urea Nitrogen 6 mg/dL (9-23); Calcium (Corrected) 8.2 mg/dL (8.5-10.1); Carbon Dioxide 29.5 mMol/L (20.0-31.0); Chloride 101 mMol/L (98-107); Creatinine (Component) 0.7 mg/dL (0.6-1.3); Globulin 2.2 gm/dL (2.3-3.5); Glucose 110 mg/dL (74-106); Magnesium 1.8 mg/dL (1.6-2.6); Osmolality,Calculated 278 (275-295); Phosphorous 3.4 mg/dL (2.4-5.1); Potassium 3.6 mMol/L (3.4-5.1); Sodium 140 mMol/L (136-145); eGFR > 60 See Note
[2024-08-28] MEDS: PANTOPRAZOLE INJ 40 MG VIAL IVP (08:39)
--- NOTE | 2024-08-28 12:17 | PC.NURSE ---
called for octreotide to pharmacist Mitch
[2024-08-28] MEDS: OCTREOTIDE ACET INJ 1,000 MCG in SODIUM CHLORIDE 0.9% 100 ML 5.1 MCG IV (12:25)
--- NOTE | 2024-08-28 14:52 | ESPR_ITS ---
<Statement entered by Mikel Lloyd MD - 08/29/24 11:33> HgB stable, patient had EGD completed by Dr. Lyman which indicating esophagitis with no bleeding source. Currently undergoing GoLytely prep for colonoscopy later in the day. I discussed with and supervised the internetworking technician physician involved in the care of this patient. Patient assessment and plan was discussed with entire medicine team, including my attending. I agree with the assessment and plan as documented by internetworking technician doctor. Patient care was discussed with my attending physician Dr. Liang Lloyd, PGY-2 Documentation for date of: 08/28/24 Subjective Subjective Interval history: Patient is seen and examined at bedside No acute overnight event. Patient underwent upper GI endoscopy yesterday and found to have esophagitis and erythematous mucosa in gastric antrum Patient is currently on GoLytely for the preparation of undergoing colonoscopy Vitals are stable. Physical examination remains unremarkable Labs are unremarkable except for mild anemia, hypocalcemia Plan to discharge tomorrow once the colonoscopy is done Exam Vital Signs Temp Pulse Resp BP Pulse Ox O2 Del Method O2 Flow Rate 96.9 F 76 18 114/72 96 Room Air 2 08/28/24 11:50 08/28/24 11:50 08/28/24 11:50 08/28/24 11:50 08/28/24 11:50 08/28/24 11:50 08/27/24 19:25 FiO2 3 08/27/24 19:08 Narrative Exam General: Awake. HEENT: Normocephalic, atraumatic, mucous membranes moist. Heart: Regular rate and rhythm, no murmurs. Lungs: Clear to auscultation with no wheezing or crackles. Abdomen: Soft, nondistended, nontender, positive bowel sounds. ?No guarding or rebound tenderness. Neurologic: Alert and oriented x3, no gross neurological deficit, and patient able to move all 4 extremities. Extremities: No edema. Skin: No rash or ecchymoses. Objective Labs 08/29/24 05:17 08/29/24 05:17 Labs: Laboratory Results - last 24 hr 08/28/24 05:20 WBC 6.6 RBC 3.24 L Hgb 8.9 L Hct 25.9 L MCV 80 MCH 27.5 MCHC 34.4 RDW Std Deviation 40.1 Plt Count 121 L Neut % (Auto) 68 Lymph % (Auto) 25 [place] % (Auto) 5 Eos % (Auto) 1 Baso % (Auto) 1 Neut # (Auto) 4.5 Lymph # (Auto) 1.7 [place] # (Auto) 0.3 Eos # (Auto) 0.1 Baso # (Auto) 0.0 Immature Gran # (Auto) 0.03 H Absolute Nucleated RBC 0.00 Immature Gran % 1 H Nucleated RBC % 0 Sodium 140 Potassium 3.6 Chloride 101 Carbon Dioxide 29.5 Anion Gap 10 BUN 6 L Creatinine 0.7 Estim Creat Clear Calc 98.0 eGFR > 60 BUN/Creatinine Ratio 9 L Glucose 110 H Calculated Osmolality 278 Calcium 8.0 L Corrected Calcium 8.2 L Phosphorus 3.4 Magnesium 1.8 Total Bilirubin 0.4 ALT 19 Alkaline Phosphatase 70 Total Protein 6.0 Albumin 3.8 Globulin 2.2 L Albumin/Globulin Ratio 1.7 Quality Measures Quality Measures none Assessment & Plan Assessment Current Active Medications: Generic Name Dose Route Start Last Admin Trade Name Freq PRN Reason Stop Dose Admin Acetaminophen 650 mg 08/26/24 11:30 08/27/24 10:52 Acetaminophen 325 Mg Tablet PO 09/25/24 11:29 650 mg Q6H PRN Administration PAIN SCALE 1-3 (mild Acetaminophen 650 mg 08/26/24 11:30 Acetaminophen 325 Mg Tablet PO 09/25/24 11:29 Q6H PRN Fever >100.4 Dextrose 25 ml 08/26/24 12:00 Dextrose 50%-Water Inj 50 Ml Syringe IV 09/25/24 11:59 Q15MIN PRN BG 50-70 responsive npo pt Dextrose 50 ml 08/26/24 12:00 Dextrose 50%-Water Inj 50 Ml Syringe IV 09/25/24 11:59 Q15MIN PRN BG <50 OR BG <70 & pt unresponsive Glucagon 1 mg 08/26/24 12:00 Glucagon Inj 1 Mg Vial IM Q15MIN PRN BG <70, and no IV access Hydromorphone HCl 0.5 mg 08/26/24 11:59 08/26/24 17:01 Hydromorphone Inj 2 Mg/Ml Vial IVP 08/31/24 11:58 0.5 mg Q4HR PRN Administration PAIN SCALE 4-10(Mod-Sev Octreotide Acetate 1,000 mcg/ 102 mls @ 5.1 mls/hr 08/26/24 19:43 06/07/25 12:25 Sodium Chloride IV 08/31/24 19:43 50 mcg/hr .Q20H JOHN PAUL 5.1 mls/hr Administration Protocol 50 MCG/HR Insulin Human Lispro 0 unit 08/27/24 12:00 08/28/24 12:24 Insulin Lispro (Admelog) 1 Unit/0.01 Ml Unit SC 09/26/24 11:59 Not Given Q6HR JOHN PAUL Protocol Ondansetron HCl 4 mg 08/26/24 11:30 08/27/24 23:13 Ondansetron Inj 2 Mg/Ml Inj 2 Ml IVP 09/25/24 11:29 4 mg Q6H PRN Administration NAUSEA OR VOMITING Protocol Pantoprazole Sodium 40 mg 08/28/24 09:00 08/28/24 08:39 Pantoprazole Inj 40 Mg Vial IVP 09/27/24 08:59 40 mg QDAY JOHN PAUL Administration Plan This is a 49-year-old female with PMHx of T2DM, thyroid cancer s/p thyroidectomy, admitted for acute episode of diarrhea, bloody emesis and abdominal pain. vital ok, hgb 11 > 9.0, CMP ok Appreciate recommendations from GI team. Acute upper GI bleed mild anemia (stable) Reports several episodes of bloody emesis that started tonight before admission, as stated below. Admission Hgb 11.7. PLT 140, normal coag studies. Today Hgb 9.0, likely dilutional, no recurrent episodes of bloody emesis or emesis in general. Upper GI endoscopy showed esophagitis and erythematous mucosa in gastric antrum ? Type and screen ? Transfuse if Hgb <7 ? Daily labs Acute colitis versus gastritis Acute bloody emesis (resolved) Acute diarrhea (resolved) Concern for C. difficile (ruled out) Concern for pancreatitis (resolved) Presenting with acute onset of bloody emesis and diarrhea started tonight before admission. Reports abdominal pain, 4?5 episodes of bloody emesis, +3 episodes of watery diarrhea. History of recent ANTIBIOTICS use for UTI symptoms which have resolved. Lipase minimally elevated, reports epigastric and LUQ pain. CT showed diffuse colitis and mild inflammatory changes in the right perianal region. Had normal colonoscopy 1 year ago. Denies NSAIDs use, alcohol use, tobacco use, previous similar symptoms, abnormal weight changes, new medications other than ANTIBIOTICS. Denies symptoms of GERD or acid reflux. No recent or previous PPI use. DDx: Acute colitis, gastritis, esophagitis, C. difficile, acute pancreatitis. ? Pain control, avoid NORCO 2/2 allergy ? Continue ANTIEMETICS ? Pending stool culture and WBC. ? Colonoscopy later today ? Pending ANCA, anti-proteinase 3, anti-myeloperoxidase Asymptomatic bacteriuria UA showing 4+ bacteria, 4 RBCs, positive LE, 2+ blood, pH 7.5. Recently treated with CIPRO for UTI. Currently asymptomatic. Afebrile, no leukocytosis. ? Will continue to monitor T2DM A1c 5.3 from 07/01/2024. GLUCOSE 181 on admission. ? INSULIN sliding scale ? Accu-Cheks Post-thyroidectomy hypothyroidism Hx thyroid carcinoma, thyroidectomy 2023 And history of thyroid cancer, thyroidectomy 2023, on home LEVOTHYROXINE 125 mcg. ? Continue LEVOTHYROXINE 93 MCG IV daily Health maintenance Diet: On Golytely GI prophylaxis: PROTONIX DVT prophylaxis: SCDs Antibiotics: Not indicated CODE STATUS: Full code Disposition: Pending Colonoscopy Patient plan of care was discussed with the attending physician, Dr. Tavera and senior resident Dr. Gabino Burleson, PGY1 Attending Provider Attestation/Addendum I, Christine Tavera, DO, attest that I was physically present for the christina portions of the service and evaluated the patient with the resident and I reviewed and discussed the case with the resident and agree with the resident's findings and plans of care as documented above Patient seen eval this a.m. Patient underwent endoscopy yesterday showing esophagitis and erythematous mucosa in the gastric antrum. Biopsies were taken. No signs of active bleeding noted. Patient is scheduled for colonoscopy this evening as source of bleeding remains obscure. Will follow-up with colonoscopy results. Patient otherwise stable. Anticipate discharge in the next 24 hours if no further episodes of bleeding is seen. Patient denies any nausea or vomiting.
[2024-08-29] VITALS: BP 113/70; PULSE 73; PULSE 74; RESP 14; TEMP 36.7; O2SAT 99
[2024-08-29 04:00] VITALS: BP 109/70; PULSE 75; PULSE 87; RESP 18; TEMP 36.6; O2SAT 93
[2024-08-29] MEDS: LEVOTHYROXINE SODIUM 125 MCG TABLET PO (05:26)
[2024-08-29 05:58] LABS: Basophils % (Auto) 0 % (0-2.5); Eosinophils # (Auto) 0.1 Thou/mm3 (0.0-0.5); Eosinophils % (Auto) 2 % (0-10); Hematocrit 24.4 % (36.0-46.0); Immature Granulocytes % (Auto) 1 % (0-0); Immature Granulocytes Auto 0.03 Thou/mm3 (0.00-0.00); Lymphocytes # (Auto) 1.4 Thou/mm3 (1.0-4.8); Lymphocytes % (Auto) 26 % (10-50); Mean Corpuscular HGB Conc 33.6 g/dl (31.0-37.0); Mean Corpuscular Hemoglobin 27.2 pg (25.0-35.0); Mean Corpuscular Volume 81 fL (80-100); Monocytes # (Auto) 0.3 Thou/mm3 (0.0-0.8); Monocytes % (Auto) 6 % (0-12); Neutrophils # (Auto) 3.6 Thou/mm3 (1.8-7.7); Neutrophils % (Auto) 66 % (37-80); Nucleated Red Blood Cell % 0 /100 WBC (0); Platelet Count 119 Thou/mm3 (140-440); RDW Standard Deviation 41.1 fL (36.4-46.3); Red Blood Count 3.02 Miln/mm3 (4.00-5.20); White Blood Count 5.5 Thou/mm3 (3.6-11.0)
[2024-08-29 06:04] LABS: Hemoglobin 8.2 g/dL (12.0-16.0)
[2024-08-29 07:10] LABS: Alanine Aminotransferase 17 U/L (10-49); Albumin, Serum 3.5 gm/dL (3.5-5.0); Albumin/Globulin Ratio 1.6 (1.2-2.2); Alkaline Phosphatase 66 U/L (46-116); Anion Gap 9 (7-16); BUN/Creatinine Ratio 13 Ratio (12-20); Bilirubin,Total 0.3 mg/dL (0.3-1.2); Blood Urea Nitrogen 8 mg/dL (9-23); Calcium 7.5 mg/dL (8.3-10.6); Calcium (Corrected) 7.9 mg/dL (8.5-10.1); Carbon Dioxide 29.5 mMol/L (20.0-31.0); Chloride 107 mMol/L (98-107); Creatinine (Component) 0.6 mg/dL (0.6-1.3); Estimated Creatinine Clearance 114.3 mL/min (>60); Globulin 2.2 gm/dL (2.3-3.5); Glucose 95 mg/dL (74-106); Magnesium 1.8 mg/dL (1.6-2.6); Osmolality,Calculated 287 (275-295); Phosphorous 3.5 mg/dL (2.4-5.1); Sodium 145 mMol/L (136-145); Total Protein 5.7 gm/dL (5.7-8.2); eGFR > 60 See Note
--- NOTE | 2024-08-29 07:42 | PD.RESPRO ---
Documentation for date of: 08/29/24 Exam Vital Signs Temp Pulse Resp BP Pulse Ox O2 Del Method O2 Flow Rate 97.9 F 75 18 109/70 93 L Room Air 3 08/29/24 04:00 08/29/24 04:00 08/29/24 04:00 08/29/24 04:00 08/29/24 04:00 08/29/24 04:00 08/28/24 17:39 FiO2 3 08/27/24 19:08 Objective Labs 08/29/24 05:17 08/29/24 05:17 Labs: Laboratory Results - last 24 hr 08/29/24 05:17 WBC 5.5 RBC 3.02 L Hgb 8.2 L Hct 24.4 L MCV 81 MCH 27.2 MCHC 33.6 RDW Std Deviation 41.1 Plt Count 119 L Neut % (Auto) 66 Lymph % (Auto) 26 [place] % (Auto) 6 Eos % (Auto) 2 Baso % (Auto) 0 Neut # (Auto) 3.6 Lymph # (Auto) 1.4 [place] # (Auto) 0.3 Eos # (Auto) 0.1 Baso # (Auto) 0.0 Immature Gran # (Auto) 0.03 H Absolute Nucleated RBC 0.00 Immature Gran % 1 H Nucleated RBC % 0 Sodium 145 Potassium 4.0 Chloride 107 Carbon Dioxide 29.5 Anion Gap 9 BUN 8 L Creatinine 0.6 Estim Creat Clear Calc 114.3 eGFR > 60 BUN/Creatinine Ratio 13 Glucose 95 Calculated Osmolality 287 Calcium 7.5 L Corrected Calcium 7.9 L Phosphorus 3.5 Magnesium 1.8 Total Bilirubin 0.3 ALT 17 Alkaline Phosphatase 66 Total Protein 5.7 Albumin 3.5 Globulin 2.2 L Albumin/Globulin Ratio 1.6 Quality Measures Quality Measures none Assessment & Plan Assessment Current Active Medications: Generic Name Dose Route Start Last Admin Trade Name Freq PRN Reason Stop Dose Admin Acetaminophen 650 mg 08/26/24 11:30 08/27/24 10:52 Acetaminophen 325 Mg Tablet PO 09/25/24 11:29 650 mg Q6H PRN Administration PAIN SCALE 1-3 (mild Acetaminophen 650 mg 08/26/24 11:30 Acetaminophen 325 Mg Tablet PO 09/25/24 11:29 Q6H PRN Fever >100.4 Dextrose 25 ml 08/26/24 12:00 Dextrose 50%-Water Inj 50 Ml Syringe IV 09/25/24 11:59 Q15MIN PRN BG 50-70 responsive npo pt Dextrose 50 ml 08/26/24 12:00 Dextrose 50%-Water Inj 50 Ml Syringe IV 09/25/24 11:59 Q15MIN PRN BG <50 OR BG <70 & pt unresponsive Glucagon 1 mg 08/26/24 12:00 Glucagon Inj 1 Mg Vial IM Q15MIN PRN BG <70, and no IV access Hydromorphone HCl 0.5 mg 08/26/24 11:59 08/26/24 17:01 Hydromorphone Inj 2 Mg/Ml Vial IVP 08/31/24 11:58 0.5 mg Q4HR PRN Administration PAIN SCALE 4-10(Mod-Sev Insulin Human Lispro 0 unit 08/28/24 17:00 08/29/24 07:16 Insulin Lispro (Admelog) 1 Unit/0.01 Ml Unit SC 09/27/24 16:59 Not Given ACHS JOHN PAUL Protocol Levothyroxine Sodium 125 mcg 08/29/24 06:00 08/29/24 05:26 Levothyroxine Sodium 125 Mcg Tablet PO 09/28/24 05:59 125 mcg ACBR JOHN PAUL Administration Ondansetron HCl 4 mg 08/26/24 11:30 08/27/24 23:13 Ondansetron Inj 2 Mg/Ml Inj 2 Ml IVP 09/25/24 11:29 4 mg Q6H PRN Administration NAUSEA OR VOMITING Protocol Pantoprazole Sodium 40 mg 08/29/24 09:00 Pantoprazole 40 Mg Tablet PO 09/28/24 08:59 QDAY JOHN PAUL Plan This is a 49-year-old female with PMHx of T2DM, thyroid cancer s/p thyroidectomy, admitted for acute episode of diarrhea, bloody emesis and abdominal pain. Appreciate recommendations from GI team. Vitals stable. Hgb downtrending 11 > 8, PLT 119, no WBC. CHEM panel stable. Acute upper GI bleed mild anemia (stable) Reports several episodes of bloody emesis that started tonight before admission, as stated below. Admission Hgb 11.7. PLT 140, normal coag studies. Today Hgb 9.0, likely dilutional, no recurrent episodes of bloody emesis or emesis in general. Upper GI endoscopy showed esophagitis and erythematous mucosa in gastric antrum. Colonoscopy showed hemorrhoids, moderate diverticulosis in sigmoid/descending colon without diverticular bleed, erythematous mucosa in ascending/sigmoid/rectum, biopsy performed. ? Type and screen ? Transfuse if Hgb <7 ? Daily labs Acute colitis versus gastritis Acute bloody emesis (resolved) Acute diarrhea (resolved) Concern for C. difficile (ruled out) Concern for pancreatitis (resolved) Presenting with acute onset of bloody emesis and diarrhea started tonight before admission. Reports abdominal pain, 4?5 episodes of bloody emesis, +3 episodes of watery diarrhea. History of recent ANTIBIOTICS use for UTI symptoms which have resolved. Lipase minimally elevated, reports epigastric and LUQ pain. CT showed diffuse colitis and mild inflammatory changes in the right perianal region. Had normal colonoscopy 1 year ago. Denies NSAIDs use, alcohol use, tobacco use, previous similar symptoms, abnormal weight changes, new medications other than ANTIBIOTICS. Denies symptoms of GERD or acid reflux. No recent or previous PPI use. DDx: Acute colitis, gastritis, esophagitis, C. difficile, acute pancreatitis. ? Pain control, avoid NORCO 2/2 allergy ? Continue ANTIEMETICS ? Pending stool culture and WBC. ? Colonoscopy later today ? Pending ANCA, anti-proteinase 3, anti-myeloperoxidase Asymptomatic bacteriuria UA showing 4+ bacteria, 4 RBCs, positive LE, 2+ blood, pH 7.5. Recently treated with CIPRO for UTI. Currently asymptomatic. Afebrile, no leukocytosis. ? Will continue to monitor T2DM A1c 5.3 from 07/01/2024. GLUCOSE 181 on admission. ? INSULIN sliding scale ? Accu-Cheks Post-thyroidectomy hypothyroidism Hx thyroid carcinoma, thyroidectomy 2023 And history of thyroid cancer, thyroidectomy 2023, on home LEVOTHYROXINE 125 mcg. ? Continue LEVOTHYROXINE 93 MCG IV daily Health maintenance Diet: On Golytely GI prophylaxis: PROTONIX DVT prophylaxis: SCDs Antibiotics: Not indicated CODE STATUS: Full code Disposition: Pending Colonoscopy Case was discussed with attending physician and senior resident. Ck Henderson DO PGYI
[2024-08-29 07:44] VITALS: BP 114/68; PULSE 77; RESP 18; TEMP 36.9; O2SAT 95
[2024-08-29 08:00] VITALS: PULSE 85
[2024-08-29] MEDS: PANTOPRAZOLE 40 MG TABLET PO (08:16)
--- NOTE | 2024-08-29 09:06 | PC.NURSE ---
Discharge orders in, pending D/C plan in chart
--- NOTE | 2024-08-29 21:40 | ESPR_ITS ---
Documentation for date of: 08/29/24 Subjective Subjective Interval history: Late entry for the note. Case discussed with internal medicine team . Okay to discharge patient home to be followed by the PCP Exam Vital Signs Temp Pulse Resp BP Pulse Ox O2 Del Method O2 Flow Rate 98.5 F 85 18 114/68 95 Nasal Cannula 3 08/29/24 07:44 08/29/24 08:00 08/29/24 07:44 08/29/24 07:44 08/29/24 07:44 08/29/24 07:44 08/28/24 17:39 FiO2 3 08/27/24 19:08 Objective Labs 08/29/24 05:17 08/29/24 05:17 Labs: Laboratory Results - last 24 hr 08/29/24 05:17 WBC 5.5 RBC 3.02 L Hgb 8.2 L Hct 24.4 L MCV 81 MCH 27.2 MCHC 33.6 RDW Std Deviation 41.1 Plt Count 119 L Neut % (Auto) 66 Lymph % (Auto) 26 [place] % (Auto) 6 Eos % (Auto) 2 Baso % (Auto) 0 Neut # (Auto) 3.6 Lymph # (Auto) 1.4 [place] # (Auto) 0.3 Eos # (Auto) 0.1 Baso # (Auto) 0.0 Immature Gran # (Auto) 0.03 H Absolute Nucleated RBC 0.00 Immature Gran % 1 H Nucleated RBC % 0 Sodium 145 Potassium 4.0 Chloride 107 Carbon Dioxide 29.5 Anion Gap 9 BUN 8 L Creatinine 0.6 Estim Creat Clear Calc 114.3 eGFR > 60 BUN/Creatinine Ratio 13 Glucose 95 Calculated Osmolality 287 Calcium 7.5 L Corrected Calcium 7.9 L Phosphorus 3.5 Magnesium 1.8 Total Bilirubin 0.3 ALT 17 Alkaline Phosphatase 66 Total Protein 5.7 Albumin 3.5 Globulin 2.2 L Albumin/Globulin Ratio 1.6 Impressions Impression: Esophagitis gastritis Diverticulosis sigmoid and descending colon Assessment & Plan A&P Narrative # Hematemesis # Abnormal CT scan of the abdomen pelvis showing diffuse colitis # Diarrhea Plan Consent obtained for fiberoptic esophagogastroduodenoscopy with possible biopsy possible therapeutic intervention under intravenous moderate sedation Other medical problems include Diarrhea with diffuse colitis on CT scan imaging Stool culture and sensitivity Stool for C. difficile If negative consider fiberoptic colonoscopy with biopsy prior to discharge Will follow the patient Other medical problems include Diabetes mellitus type 2 Thyroid carcinoma status post thyroidectomy Thank you very much for the opportunity to participate in the care of this patient Time Spent With Patient Time: Total time spent is greater than 50% in coordination of care (as documented) at patient's floor/unit and/or counseling patient:
[2024-09-01 07:19] LABS: ANCA Screen NEGATIVE (NEGATIVE); Myeloperoxidase Ab <1.0 AI (<1.0); Proteinase-3 Ab <1.0 AI (<1.0)
== END 2024-08-29 10:05 | disposition home or self-care (01) | DRG 368 ==
LOC: SERX 11:31 → SERHOLD 11:38 → S3NX 08-27 05:58 → S2SX 08-27 10:01 → S3NX 08-27 10:02 → S3SX 08-27 16:49
PROVIDERS: Physician Assistant; Specialist; Admitting Provider Student in an Organized Health Care Education/Training Program; Emergency Provider Emergency Medicine; PCP Specialist; Visit Provider Internal Medicine
PROC: 0DB48ZX Excision of Esophagogastric Junction, Via Natural or Artificial Opening Endoscopic, Diagnostic (ICD-10-PCS; CPT 43239; principal; 2024-08-27 14:00)
PROC: 0DJD8ZZ Inspection of Lower Intestinal Tract, Via Natural or Artificial Opening Endoscopic (ICD-10-PCS; CPT 45378; principal; 2024-08-28 15:30)
DX: K20.91 Esophagitis, unspecified with bleeding (principal); K29.71 Gastritis, unspecified, with bleeding; N39.0 Urinary tract infection, site not specified; D62 Acute posthemorrhagic anemia; E11.9 Type 2 diabetes mellitus without complications; E89.0 Postprocedural hypothyroidism; R82.71 Bacteriuria; K57.30 Diverticulosis of large intestine without perforation or abscess without bleeding; K52.9 Noninfective gastroenteritis and colitis, unspecified; E83.51 Hypocalcemia; Z85.850 Personal history of malignant neoplasm of thyroid; Z90.710 Acquired absence of both cervix and uterus; Z88.5 Allergy status to narcotic agent; Z80.0 Family history of malignant neoplasm of digestive organs
CPT/HCPCS: 36415; 74177; 80053; 80307; 80320; 81001; 81025; 83605; 83690; 83735; 83993; 84100; 84145; 85014; 85018; 85025; 85610; 85652; 85730; 86021; 86036; 86140; 86850; 86900; 86901; 87015; 87045; 87046; 87205; 87329; 87493; 87899; 93225; 96361; 96374; 96375; 96376; 99285; A4217; A4649; J1171; J1200; J2250; J2354; J2405; J2470; J3010; J3490; J7030; J7050; J7120; Q9967; A9270; G0480

== ENCOUNTER → 2024-10-08 | Outpatient (CLI) | payer BC, SELFPAY ==
[2024-10-08 12:17] LABS: Basophils # (Auto) 0.0 Thou/mm3 (0.0-0.2); Basophils % (Auto) 1 % (0-2.5); Eosinophils # (Auto) 0.1 Thou/mm3 (0.0-0.5); Eosinophils % (Auto) 1 % (0-10); Hematocrit 34.0 % (36.0-46.0); Hemoglobin 11.2 g/dL (12.0-16.0); Immature Granulocytes Auto 0.01 Thou/mm3 (0.00-0.00); Immature Reticulocyte Fraction 11.1 % (3.0-15.9); Lymphocytes # (Auto) 1.5 Thou/mm3 (1.0-4.8); Lymphocytes % (Auto) 33 % (10-50); Mean Corpuscular HGB Conc 32.9 g/dl (31.0-37.0); Mean Corpuscular Hemoglobin 25.3 pg (25.0-35.0); Mean Corpuscular Volume 77 fL (80-100); Monocytes # (Auto) 0.3 Thou/mm3 (0.0-0.8); Monocytes % (Auto) 6 % (0-12); Neutrophils # (Auto) 2.7 Thou/mm3 (1.8-7.7); Neutrophils % (Auto) 59 % (37-80); Nucleated Red Blood Cell # 0.00 Thou/mm3 (0.00-0.00); Nucleated Red Blood Cell % 0 /100 WBC (0); Platelet Count 145 Thou/mm3 (140-440); RDW Standard Deviation 38.9 fL (36.4-46.3); Red Blood Count 4.43 Miln/mm3 (4.00-5.20); Reticulocyte % (Auto) 1.0 % (0.5-1.5); Reticulocyte Absolute Auto 43.0 Biln/L (25.0-75.0); Reticulocyte Hgb Content 26.4 pg (28.0-35.0); White Blood Count 4.5 Thou/mm3 (3.6-11.0)
[2024-10-08 12:29] LABS: Glucose Estimated Average 103 mg/dL (80-131); Hemoglobin A1C 5.2 % Hgb (4.8-6.0); Parathyroid Hormone Intact 66.0 pg/ml (18.5-88.0)
[2024-10-08 12:32] LABS: Folate 17.41 ng/mL (>5.38); Vitamin B12 490 pg/mL (211-911)
[2024-10-08 12:37] LABS: Iron 34 mcg/dL (50-170); Total Iron Binding Capacity 402 mcg/dL (250-425)
[2024-10-08 12:38] LABS: Percent Iron Saturation 8 % (20-55); Unsaturated Iron Binding 368 (225-295)
[2024-10-08 12:51] LABS: Creatinine MALB Rnd Ur 126 mg/dL (30-125); Microalbumin Creat Ratio 29 mg/gCrea (<30); Microalbumin, Random Urine 36 mg/L (0-300)
[2024-10-08 12:51] LABS: Alanine Aminotransferase 21 U/L (10-49); Albumin, Serum 4.5 gm/dL (3.5-5.0); Albumin/Globulin Ratio 1.4 (1.2-2.2); Alkaline Phosphatase 94 U/L (46-116); Anion Gap 14 (7-16); Aspartate Amino Transferase 21 U/L (0-34); BUN/Creatinine Ratio 14 Ratio (12-20); Bilirubin,Total 0.4 mg/dL (0.3-1.2); Blood Urea Nitrogen 10 mg/dL (9-23); Calcium 8.8 mg/dL (8.3-10.6); Calcium (Corrected) 8.8 mg/dL (8.5-10.1); Carbon Dioxide 26.4 mMol/L (20.0-31.0); Cardiac Risk Estimate 4.1 RATIO (3.7-5.6); Chloride 104 mMol/L (98-107); Cholesterol 147 mg/dL (132-200); Creatinine (Component) 0.7 mg/dL (0.6-1.3); Globulin 3.3 gm/dL (2.3-3.5); Glucose 92 mg/dL (74-106); HDL Cholesterol 36 mg/dL (40-60); LDL Cholesterol,Calculated 93 mg/dL (0-130); Osmolality,Calculated 285 (275-295); Potassium 4.5 mMol/L (3.4-5.1); Sodium 144 mMol/L (136-145); Total Protein 7.8 gm/dL (5.7-8.2); Triglycerides 89 mg/dL (30-150); eGFR > 60 See Note
[2024-10-08 14:38] LABS: Calcium, Ionized 4.3 mg/dL (4.6-5.6)
[2024-10-12 06:49] LABS: Vitamin D, 25-OH, D2 6 ng/mL; Vitamin D, 25-OH, D3 10 ng/mL; Vitamin D, 25-OH, Total 16 ng/mL (30-100)
== END | disposition home or self-care (01) ==
PROVIDERS: PCP Specialist; Referring Provider Specialist; Visit Provider Specialist
DX: E11.65 Type 2 diabetes mellitus with hyperglycemia (principal); E20.9 Hypoparathyroidism, unspecified; E78.2 Mixed hyperlipidemia; D63.8 Anemia in other chronic diseases classified elsewhere
CPT/HCPCS: 36415; 80053; 80061; 82043; 82306; 82330; 82570; 82607; 82746; 83036; 83540; 83550; 83970; 85025; 85046

== ENCOUNTER 2024-10-23 09:25 | Observation (INO) | payer BC, SELFPAY ==
[2024-10-23 09:31] VITALS: BMI 28.7
[2024-10-23 09:32] VITALS: BP 141/96; PULSE 92; RESP 18; TEMP 36.7; O2SAT 95
[2024-10-23] MEDS: KETOROLAC INJ 30 MG/ML VIAL IM (09:51)
[2024-10-23 10:07] LABS: Collection Type, Urine Clean Catch; Squamous Epithelial Cell,Urine 0 /hpf (0-5)
[2024-10-23 10:11] LABS: Basophils # (Auto) 0.0 Thou/mm3 (0.0-0.2); Basophils % (Auto) 0 % (0-2.5); Eosinophils # (Auto) 0.1 Thou/mm3 (0.0-0.5); Eosinophils % (Auto) 1 % (0-10); Hematocrit 37.3 % (36.0-46.0); Hemoglobin 11.7 g/dL (12.0-16.0); Immature Granulocytes Auto 0.01 Thou/mm3 (0.00-0.00); Lymphocytes # (Auto) 1.5 Thou/mm3 (1.0-4.8); Lymphocytes % (Auto) 16 % (10-50); Mean Corpuscular HGB Conc 31.4 g/dl (31.0-37.0); Mean Corpuscular Hemoglobin 24.7 pg (25.0-35.0); Mean Corpuscular Volume 79 fL (80-100); Monocytes # (Auto) 0.4 Thou/mm3 (0.0-0.8); Monocytes % (Auto) 5 % (0-12); Neutrophils # (Auto) 7.2 Thou/mm3 (1.8-7.7); Neutrophils % (Auto) 78 % (37-80); Nucleated Red Blood Cell # 0.00 Thou/mm3 (0.00-0.00); Nucleated Red Blood Cell % 0 /100 WBC (0); Platelet Count 154 Thou/mm3 (140-440); RDW Standard Deviation 40.8 fL (36.4-46.3); Red Blood Count 4.73 Miln/mm3 (4.00-5.20); White Blood Count 9.2 Thou/mm3 (3.6-11.0)
[2024-10-23 10:21] LABS: Bilirubin,Urine Negative (Negative); Blood,Urine 3+ (Negative); Color,Urine Drk-Yellow (Lt Yel-Yel); Glucose, Urine Negative (Negative); Ketones,Urine Negative (Negative); Leukocyte Esterase,Urine Positive (Negative); Nitrite,Urine Negative (Negative); PH,Urine 7.0 (5.0-7.0); Protein,Urine 2+ (Neg - Trace); RBC,Urine 6099 /hpf (0-3); Specific Gravity,Urine 1.018 (1.001-1.035); Transitional Epi Cells,Urine 10 /hpf (0-5); Urobilinogen,Urine Negative mg/dL (0.0-1.0); WBC,Urine 2094 /hpf (0-5)
[2024-10-23 10:22] LABS: HCG Qualitative,Urine Negative
[2024-10-23 10:23] LABS: Clarity,Urine Turbid (Clear/Hazy); Culture Indicated,Urine Yes
--- NOTE | 2024-10-23 10:32 | PD.EDRME ---
Rapid Medical Screening Exam RME Arrival date/time: 10/23/24 09:25 49-year-old female presents to the emergency department today for complaint of dysuria back pain and abdominal pain Chief Complaint: Urogenital-Female Time Seen by Provider: 10/23/24 09:37 Vital signs: Vital Signs Temperature 98.1 F 10/23/24 09:32 Pulse Rate 92 10/23/24 09:32 Respiratory Rate 18 10/23/24 09:32 Blood Pressure 141/96 H 10/23/24 09:32 Pulse Oximetry (%) 95 10/23/24 09:32 Oxygen Delivery Method Room Air 10/23/24 09:32
[2024-10-23 11:01] LABS: Alanine Aminotransferase 18 U/L (10-49); Albumin, Serum 4.5 gm/dL (3.5-5.0); Albumin/Globulin Ratio 1.4 (1.2-2.2); Alkaline Phosphatase 102 U/L (46-116); Anion Gap 8 (7-16); Aspartate Amino Transferase 17 U/L (0-34); BUN/Creatinine Ratio 14 Ratio (12-20); Bilirubin,Total 0.4 mg/dL (0.3-1.2); Blood Urea Nitrogen 11 mg/dL (9-23); Calcium 8.8 mg/dL (8.3-10.6); Calcium (Corrected) 8.8 mg/dL (8.5-10.1); Carbon Dioxide 26.8 mMol/L (20.0-31.0); Chloride 105 mMol/L (98-107); Creatinine (Component) 0.8 mg/dL (0.6-1.3); Estimated Creatinine Clearance 91.2 mL/min (>60); Globulin 3.3 gm/dL (2.3-3.5); Glucose 110 mg/dL (74-106); Lipase 49 U/L (12-53); Osmolality,Calculated 279 (275-295); Potassium 4.4 mMol/L (3.4-5.1); Sodium 140 mMol/L (136-145); Total Protein 7.8 gm/dL (5.7-8.2); eGFR > 60 See Note
--- NOTE | 2024-10-23 11:01 | XR_ITS ---
Examination: CT abdomen with intravenous contrast CT pelvis with intravenous contrast 2-D coronal reconstructions 2-D sagittal reconstructions Date and time of exam:October 23, 2024 1113 hours, comparison August 26, 2024 INDICATIONS: Right flank pain beginning 2 days ago CTDI: vol (mGy) 18.4 DLP: (mGycm) 668 Technique: Multiple axial sections of the abdomen and pelvis have been obtained. 64 slice high-resolution scanner used. 3 mm axial sections have been obtained, post intravenous injection 60 cc Isovue 370 2-D sagittal, coronal reconstructions obtained. Low dose protocols were performed. One or more of the following dose reduction techniques were used; automated exposure control, adjustment of the mA and/or KV according to patient size, use of iterative reconstruction technique. Findings: No focal liver or splenic lesions No gallstones No pancreatic or adrenal mass Minimal right hydronephrosis, not ureteral calculi Mild wall thickening right pelvicalyceal system and right ureter 2 mm lower pole nonobstructing left renal calculus Normal appendix No bowel obstruction No pelvic mass Wall thickening involving ureter IMPRESSION: Findings most consistent with right pyelonephritis and cystitis
[2024-10-23 11:36] VITALS: BP 137/90; PULSE 62; RESP 16; O2SAT 97
[2024-10-23 11:38] LABS: INR 1.0 (0.9-1.3); Prothrombin Time 10.8 Seconds (9.0-12.2)
[2024-10-23] MEDS: MORPHINE SULF INJ 10 MG/ML VIAL 4 MG IVP (11:40)
[2024-10-23] MEDS: ONDANSETRON INJ 2 MG/ML INJ 2 ML 4 MG IVP (11:40)
[2024-10-23] MEDS: SODIUM CHLORIDE 0.9% 1000 ML 1,000 ML 999 ML IV ×2 (11:40→15:12)
--- NOTE | 2024-10-23 11:40 | PD.EDFMALE ---
ED Female Urogenital RME/HPI General Chief complaint: Urogenital-Female Stated complaint: BURNING W/URINATION & KIDNEY STONES Time Seen by Provider: 10/23/24 09:37 Arrival date/time: 10/23/24 09:25 Limitations: no limitations RME / HPI RME / HPI Narrative: 10/23/24 09:25 49-year-old female presents to the emergency department today for complaint of dysuria back pain and abdominal pain DR. CONNER MAIN ED EVALUATION: 49-year-old female with past medical history of right kidney stones, diabetes mellitus, thyroidectomy for cancer, and a section presents to the Emergency Department with complaint of right flank pain and dysuria worsening over the past few days. Pain was severe earlier but has improved since receiving pain medication around 3:12 PM. No history of smoking, alcohol, or drug use. Family history is significant for hypertension and diabetes. Patient has a [place] allergy. Related Data Home Medications ?Medication ?Instructions ?Recorded ?Confirmed levothyroxine 125 mcg tablet 125 mcg PO QDAY 08/27/24 08/27/24 Previous Rx's ?Medication ?Instructions ?Recorded famotidine 20 mg tablet 20 mg PO QDAY #30 tabs 08/29/24 ferrous sulfate 325 mg (65 mg 325 mg PO QDAY #30 tabs 08/29/24 iron) tablet Allergies Allergy/AdvReac Type Severity Reaction Status Date / Time hydrocodone Allergy Mild TACHYCARCIA Verified 10/23/24 09:29 Review of Systems Review of Systems Systems Reviewed: All systems reviewed, normal except as documented Past Medical History Past Medical History GENITOURINARY: Positive Kidney Stones REPRODUCTIVE: Positive Previous Pregnancies MUSCULOSKELETAL: Positive Carpal Tunnel Syndrome ENDOCRINE: Positive Endocrine Disorders, Diabetes Mellitus Type 2 and Hypothyroidism OTHER HISTORY: Positive Hospitalization and Cancer (thyroid) Family History FAMILY HISTORY: Positive Family Cardiac Disorders and Family Surgery Surgical History SURGICAL: Positive Thyroidectomy, Hysterectomy and Section Social History SMOKING STATUS: Never smoker SUBSTANCE USE: does not use ALCOHOL: Never ED Exam General Limitations: Present no limitations General appearance: Present alert and in no apparent distress Head Head exam: Present atraumatic, normocephalic and normal inspection Eye Eye exam: Present normal appearance, PERRL and EOMI ENT ENT exam: Present normal exam, normal oropharynx and mucous membranes moist Neck Neck exam: Present normal inspection, full ROM and trachea midline Chest Chest inspection: Present normal inspection and symmetric chest wall rise Respiratory Respiratory exam: Present normal lung sounds bilaterally Cardiovascular Cardiovascular exam: Present regular rate, normal rhythm and normal heart sounds Abdominal Exam Abdominal exam: Present soft and normal bowel sounds Extremities Exam Extremities exam: Present normal inspection and full ROM Back Exam Back exam: Present full ROM and CVA tenderness (R) Neurological Exam Neurological exam: Present alert, oriented X3 and CN II-XII intact Psychiatric Psychiatric exam: Present normal affect and normal mood Skin Skin exam: Present warm, dry, intact and normal color Course Quality Measures none Orders Category Date Time Status CT Screening NOW Care 10/23/24 11:02 Active Run Lead STAT Care 10/23/24 11:01 Active Continuous Pulse Oximetry STAT Care 10/23/24 11:01 Completed Insert IV STAT Care 10/23/24 11:01 Active NPO STAT Care 10/23/24 11:[address] abdomen pelvis w con Stat Exams 10/23/24 11:01 Completed Blood Culture (Lab) Stat Lab 10/23/24 15:16 Ordered CBC Stat Lab 10/23/24 09:55 Completed Comprehensive Metabolic Panel Stat Lab 10/23/24 09:55 Completed HCG Qualitative,Urine Stat Lab 10/23/24 09:54 Completed Lactate (Lactic Acid) Stat Lab 10/23/24 15:16 Ordered Lipase Stat Lab 10/23/24 09:55 Completed Magnesium Stat Lab 10/23/24 09:55 Completed Prothrombin Time with INR Stat Lab 10/23/24 09:55 Completed UA, C/S IF [Urinalysis, C/S if Indicated] Stat Lab 10/23/24 09:54 Completed Urine Culture Stat Lab 10/23/24 09:54 Received Ketorolac Inj [Toradol Inj] Med 10/23/24 09:37 Discontinued 30 mg IM X1 ONE Morphine Inj Med 10/23/24 11:01 Discontinued 4 mg IVP X1 ONE Ondansetron Inj [Zofran Inj] Med 10/23/24 11:02 Discontinued 4 mg IVP X1 ONE Sodium Chloride 0.9% 1000 ml [Ns] 1,000 ml Med 10/23/24 11:01 Discontinued IV 999 mls/hr Sodium Chloride 0.9% 1000 ml [Ns] 1,000 ml Med 10/23/24 15:03 Active IV 999 mls/hr cefTRIAXone [Rocephin] 2 gm Med 08/02/25 15:03 Active SODIUM CHLORIDE 0.9% (Popper) [Ns 0.9% (P)] 50 ml IV X1 Vital Signs Vital signs: Vital Signs Temperature 98.1 F 10/23/24 09:32 Pulse Rate 92 10/23/24 09:32 Respiratory Rate 18 10/23/24 09:32 Blood Pressure 141/96 H 10/23/24 09:32 Pulse Oximetry (%) 95 10/23/24 09:32 Oxygen Delivery Method Room Air 10/23/24 09:32 Urogenital - Female MDM Narrative MDM Narrative:: Shannan Herrera am scribing for and in the presence of Dr. Conner. Patient data External records reviewed:: [facility] previous records Clinical information provided by:: patient Social determinants that could affect healthcare access:: none Patient has the following chronic illnesses:: Right kidney stones, diabetes mellitus, thyroidectomy for cancer, and a section. Family history is significant for hypertension and diabetes.Patient has a [place] allergy. How is presenting disease/condition affected by chronic disease/condition?: exacerbated by Evaluation data The following diagnostics were reviewed and interpreted by me:: lab results and radiology exam(s) Lab and/or radiology exams considered but not ordered:: none Interpretation Summary: Procedure(s): CT abdomen pelvis w con Accession Number(s): [id number] cc: Josue Conner MD; Ivan Yu MD; Daniel Jesus MD~ Examination: CT abdomen with intravenous contrast CT pelvis with intravenous contrast 2-D coronal reconstructions 2-D sagittal reconstructions Date and time of exam:October 23, 2024 1113 hours, comparison August 26, 2024 INDICATIONS: Right flank pain beginning 2 days ago CTDI: vol (mGy) 18.4 DLP: (mGycm) 668 Technique: Multiple axial sections of the abdomen and pelvis have been obtained. 64 slice high-resolution scanner used. 3 mm axial sections have been obtained, post intravenous injection 60 cc Isovue 370 2-D sagittal, coronal reconstructions obtained. Low dose protocols were performed. One or more of the following dose reduction techniques were used; automated exposure control, adjustment of the mA and/or KV according to patient size, use of iterative reconstruction technique. Findings: No focal liver or splenic lesions No gallstones No pancreatic or adrenal mass Minimal right hydronephrosis, not ureteral calculi Mild wall thickening right pelvicalyceal system and right ureter 2 mm lower pole nonobstructing left renal calculus Normal appendix No bowel obstruction No pelvic mass Wall thickening involving ureter IMPRESSION: Findings most consistent with right pyelonephritis and cystitis Dictated By: Daniel Jesus MD Medications / Prescriptions Medications or Prescriptions considered but not ordered:: none Medication administrations:: Medication Administration History Sodium Chloride (Ns) 1,000 mls @ 999 mls/hr IV .Q1H1M ONE Stop: 10/23/24 16:03 Last Admin: 10/23/24 15:12 Dose: 999 mls/hr Documented By: EF Ceftriaxone Sodium 2 gm/ (Sodium Chloride) 50 mls @ 100 mls/hr IV X1 ONE Stop: 10/23/24 15:32 Last Admin: 10/23/24 15:12 Dose: 100 mls/hr Documented By: EF Discontinued Medications Sodium Chloride (Ns) 1,000 mls @ 999 mls/hr IV .Q1H1M ONE Stop: 10/23/24 12:01 Last Infusion: 10/23/24 12:41 Dose: Infused Documented By: Admin: 10/23/24 11:40 Dose: 999 mls/hr Documented By: EF Ketorolac Tromethamine (Ketorolac Inj 30 Mg/Ml Vial) 30 mg IM X1 ONE Stop: 10/23/24 09:38 Last Admin: 10/23/24 09:51 Dose: 30 mg Documented By: MF Morphine Sulfate (Morphine Sulf Inj 10 Mg/Ml Vial) 4 mg IVP X1 ONE Stop: 10/23/24 13:01 Last Admin: 10/23/24 11:40 Dose: 4 mg Documented By: EF Ondansetron HCl (Ondansetron Inj 2 Mg/Ml Inj 2 Ml) 4 mg IVP X1 ONE Stop: 10/23/24 11:03 Last Admin: 10/23/24 11:40 Dose: 4 mg Documented By: EF see above Consultations Consultation(s) initiated? (list below): Yes Consultation #1 (Physician, Specialty, Details): Discussed test HPI, PMHx, lab, radiology results and/or management with resident working with the hospitalist. Will admit for further evaluation and management. Accepts patient for admission. Time: 15:29 Diagnosis Urogenital Female Differential Diagnosis: other (nephrolithiasis, pyelonephritis, UTI) Most likely diagnosis given after review of the tests above:: Pyelonephritis UTI Admission Indicated Admission indicated?: indicated Admission Request Was there a request for admission?: Yes Admission Attestation Admission request attestation: Discussed case with [] from Hospitalist service regarding admission. Discussed patients ED course, exam findings, labs, and radiology results. The Hospitalist [agrees,declines] to accept the patient for admission. Disposition Plan Disposition Plan: Admit Discharge Plan Plan Patient Disposition: Admit Acute Care w/in Hospital Prescriptions/Referrals Prescriptions/Med Rec: No Action levothyroxine 125 mcg tablet 125 mcg PO QDAY Patient Comments: TOME 1 TABLETA POR V A ORAL TODOS LOS D EN LA MA RACHELL EN EST MARISELA VAC O FOR 90 DAYS ferrous sulfate 325 mg (65 mg iron) tablet 325 mg PO QDAY Qty: 30 0RF famotidine 20 mg tablet 20 mg PO QDAY Qty: 30 0RF Referrals: Ivan Yu MD [Primary Care Provider] - In 1 week Problem List Clinical Impression: Pyelonephritis, UTI (urinary tract infection) Patient/Caregiver Discharge Instructions Print Language: Nepali Stand Alone Forms: Veronica Award Info., Patient Portal Info Letter
[2024-10-23 11:42] LABS: Magnesium 1.6 mg/dL (1.6-2.6)
[2024-10-23] MEDS: cefTRIAXone 2 GM in SODIUM CHLORIDE 0.9% (Popper) 50 ML IV (15:12)
[2024-10-23 15:33] LABS: Lactate (Lactic Acid) 0.6 mMol/L (0.4-2.0)
[2024-10-23 15:35] VITALS: BP 125/85; PULSE 60; RESP 18; TEMP 36.4; O2SAT 98
[2024-10-23 15:52] VITALS: PULSE 83
--- NOTE | 2024-10-23 16:43 | ESHP_ITS ---
<Statement entered by Concetta Sam MD - 10/25/24 19:51> I have reviewed the note and agree with the resident's assessment & plan with exceptions as below. I have personally reviewed labs, imaging, home meds/prior records, examined the patient, formulated and discussed management plan with the IM team. Pt examined at bedside today. Pt comes in for evaluation of flank pain, endorses hx of stones and total thyroidectomy in the past. CT imaging shows nephroliathsis with no hydronephrosis and 2mm in size along with pyleonephritis. Will trend CMP, initiate IV abx and observe patient. Start SSI for T2DM. Repeat hematology and chemistry in AM. #Pyleonephritis #Nephrolithiasis #Hx papillary thyroid cancer s/p total thyroidectomy Concetta Sam, PGY-2 Internal Medicine Documentation for date of: 10/23/24 HPI History of Present Illness Chief complaint: R flank pain History of present illness: Mrs. Patterson is a 49 year old female with a past medical history of type 2 diabetes, thyroid cancer status post total thyroidectomy performed 05/23/2023, on levothyroxine presents in the ED with R sided flank pain. Patient states she has been having burning pain while she goes to the bathroom for 2 days, and noticed blood in her urine this morning. Patient states she also has right flank pain and lower abdominal pain. Patient endorses dysuria, frequency, urgency during the last 2 days. Patient states the only thing that makes it better is drinking [place] tea. Patient states that this almost always happens following the passage of a kidney stone. She states that when kidney stone passes it feels like labor pains. Patient states she has had a long history of this recurrent UTI's going back 30 years, she noted that there was around a 5- year break from any UTI during 2019 until around 2024. Endorses having a fever starting 2 days ago, which resolved yesterday afternoon. Patient denies being on her period, states she has had a hysterectomy years ago. Patient also endorses some nausea, denies any vomiting. Patient denies any fever, dizziness, chest pain, shortness of breath. 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 [place] with [place] spraying things over her living area. Denies any hx of smoking, alcohol, illicit drugs. Medication: Levothyroxine 125 mcg PO q day, Ozempic 1 mg q week Allergies: Diamond (caused tachycardia) ED Course: -Initial vitals showed afebrile temperature at 98.1, heart rate of 85, respiratory rate 18, blood pressure 141/96, 95% oxygen saturation on room air. - Labs were significant for BUN of 11, creatinine 0.8, lactic acid of 0.6, calcium 8.8, lipase 49, urinalysis showed dark yellow turbid urine with 2+ protein, 3+ blood, 6099 RBCs, 2094 WBCs, no bacteria. - CT AP showed findings most consistent with right pyelonephritis and cystitis. Blood cultures and urine cultures were taken. -In the ED, patient was given Rocephin 2 g, toradol 30 mg, morphine, zofran, 2 L IV fluid bolus's. Patient was admitted for suspected pyelonephritis Review of Systems Review of Systems Narrative Review of Systems: General: Denies fevers or chills HEENT: Denies congestion or sore throat Heart: Denies chest pain or palpitations Lungs: Denies shortness of breath or cough Abdomen: Endorses some nausea. Denies diarrhea, vomiting, constipation, bright red blood per rectum or melena Genitourinary: Endorses frequency, urgency, dysuria, hematuria, suprapubic pain, R flank pain Musculoskeletal: Denies joint pain or myalgias Neurology: Denies any changes in vision, weakness or difficulty speaking Exam Vital Signs Temp Pulse Resp BP Pulse Ox O2 Del Method 97.6 F 83 18 125/85 H 98 Room Air 10/23/24 15:35 10/23/24 15:52 10/23/24 15:35 10/23/24 15:35 10/23/24 15:35 10/23/24 15:35 Narrative Exam General: No acute distress; A&Ox3 Skin: Warm, dry, intact, no obvious rash. HENT: NCAT, EOMI, not icteric. External ears normal. No rhinorrhea. Moist mucous membranes Cardiovascular: Regular rate and rhythm, no murmur, +S1/S2. Respiratory: Lungs CTAB GI: Soft, lower abd tenderness, non-distended. No guarding or rebound tenderness. : suprapubic tenderness, R flank pain Extremities: no edema, no cyanosis, no clubbing. Extremity pulses present Neuro: No focal deficits observed. Conversant, moving all extremities. No overt cerebellar signs/incoordination. Psychiatric: Cooperative, appropriate affect. Results: Labs 10/24/24 04:33 10/24/24 04:33 Labs: Short CBC 10/23/24 Range/Units 09:55 WBC 9.2 (3.6-11.0) Thou/mm3 Hgb 11.7 L (12.0-16.0) g/dL Hct 37.3 (36.0-46.0) % Plt Count 154 (140-440) Thou/mm3 BMP 10/23/24 09:55 Sodium 140 Potassium 4.4 Chloride 105 Carbon Dioxide 26.8 BUN 11 Creatinine 0.8 Glucose 110 H Calcium 8.8 Liver Function 10/23/24 Range/Units 09:55 Total Bilirubin 0.4 (0.3-1.2) mg/dL AST 17 (0-34) U/L ALT 18 (10-49) U/L Alkaline Phosphatase 102 (46-116) U/L Albumin 4.5 (3.5-5.0) gm/dL Urine 10/23/24 Range/Units 09:54 Urine Color Drk-Yellow A (Lt Yel-Yel) Urine Clarity Turbid A (Clear/Hazy) Urine pH 7.0 (5.0-7.0) Ur Specific [place] 1.018 (1.001-1.035) Urine Protein 2+ A (Neg - Trace) Urine Glucose (UA) Negative (Negative) Quality Measures Quality Measures VTE prophylaxis Medications Home Medications and Allergies Home Medications ?Medication ?Instructions ?Recorded ?Confirmed ?Type levothyroxine 125 mcg tablet 125 mcg PO QDAY 08/27/24 10/23/24 History semaglutide 1 mg/dose (4 mg/3 mL) 1 mg subcut .once we ek 10/23/24 10/23/24 History subcutaneous pen injector (Ozempic) Allergies Allergy/AdvReac Type Severity Reaction Status Date / Time hydrocodone Allergy Mild TACHYCARCIA Verified 10/23/24 09:29 Visit Medications Discontinued Medications Sodium Chloride (Ns) 1,000 mls @ 999 mls/hr IV .Q1H1M ONE Stop: 10/23/24 12:01 Last Infusion: 10/23/24 12:41 Dose: Infused Sodium Chloride (Ns) 1,000 mls @ 999 mls/hr IV .Q1H1M ONE Stop: 10/23/24 16:03 Last Admin: 10/23/24 15:12 Dose: 999 mls/hr Ceftriaxone Sodium 2 gm/ (Sodium Chloride) 50 mls @ 100 mls/hr IV X1 ONE Stop: 10/23/24 15:32 Last Infusion: 10/23/24 15:42 Dose: Infused Ketorolac Tromethamine (Ketorolac Inj 30 Mg/Ml Vial) 30 mg IM X1 ONE Stop: 10/23/24 09:38 Last Admin: 10/23/24 09:51 Dose: 30 mg Morphine Sulfate (Morphine Sulf Inj 10 Mg/Ml Vial) 4 mg IVP X1 ONE Stop: 10/23/24 13:01 Last Admin: 10/23/24 11:40 Dose: 4 mg Ondansetron HCl (Ondansetron Inj 2 Mg/Ml Inj 2 Ml) 4 mg IVP X1 ONE Stop: 10/23/24 11:03 Last Admin: 10/23/24 11:40 Dose: 4 mg Assessment & Plan Plan Assessment Mrs. Patterson is a 49 year old female with a past medical history of type 2 diabetes, thyroid cancer status post total thyroidectomy performed 05/23/2023, on levothyroxine presents in the ED with R sided flank pain. Patient was admitted for suspected pyelonephritis #Pyelonephritis #UTI #Nephrolithiasis Likely due to reccurent UTI's, possibly kidney stone induced. Patient presents with classic signs of flank pain (R side), lower urinary tracts symptoms. Blood in the urine, especially chronically is concerning for cancer. Labs on admission notable for WBC 9.2, Ca 8.8, Albumin 4.5, BUN 11, Cr 0.8, Lactic acid 0.6. UA showed 2+ protein, 3+ blood, 6099 RBC's, 2094 WBC, No bacteria noted, urine HCG negative. CT Abdomen showed stated Findings most consistent with right pyelonephritis and cystitis & 2 mm lower pole nonobstructing left renal calculus. In the ED, patient was given Rocephin 2 gm, toradol 30 mg, morphine, zofran, 2 L IV fluid bolus's. Plan: -Ordered Rocephin 1 gm q day starting in AM. -Started IV NS maintenance fluid @100 mls/hr -blood & urine cx ordered -Strain urine for calculus' ordererd, f/u -Ca random urine ordered -ordered mag, phos, coags, tsh; f/u #thyroid cancer s/p total thyroidectomy performed 05/23/2023 Home med on levothyroxine 125 mcg PO q day -restarted levothyroxine #T2DM Patient's A1C 5.2 09/2024; has been well controlled since 10/2020 (6.3). Take Ozempic 1 mg q week for home medication -Monitor Blood glucose levels #microcytic anemia likely due to iron deficiency anemia from poor oral intake vs poor absorption. hgb 11.7, mcv 79, on admission no signs/symptoms of bleeding, fatigue, weakness, shortness of breath or dizziness -f/u cbc, continue to monitor Hospital Management: Disposition: Medical Floor Diet: Regular GI Prophylaxis: Protonix Bowel Prophylaxis: None DVT Prophylaxis: Lovenox CODE STATUS: Full Code Patient plan of care was discussed with the attending physician, Dr. Tavera and senior resident, Dr. Flaco Brownlee MD PGY-1 Attending Provider Attestation/Addendum I, Christine Tavera DO, attest that I was physically present for the christina portions of the service and evaluated the patient with the resident and I reviewed and discussed the case with the resident and agree with the resident's findings and plans of care as documented above Patient is a 49-year-old female past medical history of thyroid cancer status post thyroidectomy and type 2 diabetes who presented to the ED due to right flank pain that has been worsening for the past few days. Patient complains of mainly suprapubic pain with dysuria. She has had similar symptoms in the past due to kidney stones. She has been suffering from kidney stones for over 20 years and has recurrent UTIs. Patient states that she took it couple pills of Pyridium she had leftover from previous visits which helped for a few days with her dysuria, but has been having worsening pain which prompted her to come to the ED. She also noted some blood in her urine. Patient has seen a urologist in the past, but did not undergo any interventions that she was told that she there is no blockage from her kidney stones. Patient takes Tylenol at home and does not want to take any opioids. She received some Toradol in the ED with some improvement of her pain. She continues to complain of right flank pain. A CT abdomen pelvis was done showing evidence of right pyelonephritis and cystitis. Patient should with will admit patient under observation for further workup medical management of pain secondary to acute pyelonephritis and nephrolithiasis. Patient will be started on IV Rocephin and continue with pain control as needed. Follow-up with blood and urine cultures. Review of her chart shows no evidence of resistant UTIs in the past. Patient will likely benefit from outpatient urology follow-up due to thickening of bladder, but may likely be reactive to nephrolithiasis. Will continue with IV fluid hydration.
[2024-10-23 17:29] VITALS: BMI 28.9
--- NOTE | 2024-10-23 19:05 | PC.NURSE ---
RECEIVED PATIENT ALERT AND ORIENTED X3.IV DRESSING FIXED AND CHANGED PER PATIENT REQUEST.CALL LIGHT WITHIN REACH.INSTRUCTED TO CALL WHEN NEEDED ASSISTANCE.
[2024-10-23 20:00] VITALS: BP 116/78; PULSE 61; RESP 17; TEMP 36.2; O2SAT 97
[2024-10-23] MEDS: SODIUM CHLORIDE 0.9% 1000 ML 1,000 ML 100 ML IV (20:09)
[2024-10-23] MEDS: KETOROLAC INJ 30 MG/ML VIAL IVP (22:34)
[2024-10-24] VITALS: BP 108/69; PULSE 69; RESP 17; TEMP 36.1; O2SAT 95
[2024-10-24 04:00] VITALS: BP 109/72; PULSE 58; RESP 17; TEMP 36.4; O2SAT 95
[2024-10-24] MEDS: LEVOTHYROXINE SODIUM 125 MCG TABLET PO (05:35)
[2024-10-24] MEDS: SODIUM CHLORIDE 0.9% 1000 ML 1,000 ML 100 ML IV (05:39)
[2024-10-24 05:47] LABS: Basophils # (Auto) 0.0 Thou/mm3 (0.0-0.2); Basophils % (Auto) 1 % (0-2.5); Eosinophils # (Auto) 0.1 Thou/mm3 (0.0-0.5); Eosinophils % (Auto) 1 % (0-10); Hematocrit 31.5 % (36.0-46.0); Hemoglobin 9.8 g/dL (12.0-16.0); Immature Granulocytes Auto 0.02 Thou/mm3 (0.00-0.00); Lymphocytes # (Auto) 1.8 Thou/mm3 (1.0-4.8); Lymphocytes % (Auto) 30 % (10-50); Mean Corpuscular HGB Conc 31.1 g/dl (31.0-37.0); Mean Corpuscular Hemoglobin 24.7 pg (25.0-35.0); Mean Corpuscular Volume 79 fL (80-100); Monocytes # (Auto) 0.4 Thou/mm3 (0.0-0.8); Monocytes % (Auto) 6 % (0-12); Neutrophils # (Auto) 3.8 Thou/mm3 (1.8-7.7); Neutrophils % (Auto) 62 % (37-80); Nucleated Red Blood Cell # 0.00 Thou/mm3 (0.00-0.00); Nucleated Red Blood Cell % 0 /100 WBC (0); Platelet Count 126 Thou/mm3 (140-440); RDW Standard Deviation 41.3 fL (36.4-46.3); Red Blood Count 3.97 Miln/mm3 (4.00-5.20); White Blood Count 6.0 Thou/mm3 (3.6-11.0)
[2024-10-24 06:03] LABS: INR 1.0 (0.9-1.3); Partial Thromboplastin Time 25.7 Seconds (22.0-36.0); Prothrombin Time 10.6 Seconds (9.0-12.2)
[2024-10-24 06:21] LABS: Alanine Aminotransferase 12 U/L (10-49); Albumin, Serum 3.7 gm/dL (3.5-5.0); Albumin/Globulin Ratio 1.4 (1.2-2.2); Alkaline Phosphatase 81 U/L (46-116); Anion Gap 10 (7-16); Aspartate Amino Transferase 14 U/L (0-34); BUN/Creatinine Ratio 17 Ratio (12-20); Bilirubin,Total 0.3 mg/dL (0.3-1.2); Blood Urea Nitrogen 12 mg/dL (9-23); Calcium 8.2 mg/dL (8.3-10.6); Calcium (Corrected) 8.4 mg/dL (8.5-10.1); Carbon Dioxide 26.2 mMol/L (20.0-31.0); Chloride 108 mMol/L (98-107); Creatinine (Component) 0.7 mg/dL (0.6-1.3); Estimated Creatinine Clearance 104.5 mL/min (>60); Globulin 2.6 gm/dL (2.3-3.5); Glucose 87 mg/dL (74-106); Magnesium 2.0 mg/dL (1.6-2.6); Osmolality,Calculated 285 (275-295); Phosphorous 4.6 mg/dL (2.4-5.1); Potassium 4.5 mMol/L (3.4-5.1); Sodium 144 mMol/L (136-145); Thyroid Stimulating Hormone 0.20 uIU/mL (0.55-4.78); Total Protein 6.3 gm/dL (5.7-8.2); eGFR > 60 See Note
[2024-10-24] MEDS: PHENAZOPYRIDINE HCL 100 MG TABLET PO (07:29)
[2024-10-24 07:50] VITALS: BP 115/78; PULSE 72; RESP 18; TEMP 36.1; O2SAT 96
[2024-10-24 09:31] LABS: Free T4 (Free Thyroxine) 1.47 ng/dL (0.89-1.76)
[2024-10-24] MEDS: cefTRIAXone/D5w 1gm IV premix 1 GM/50 ML BAG IV (10:00)
[2024-10-24] MEDS: ENOXAPARIN SOD INJ 40 MG/0.4 ML SYRINGE SC (10:00)
--- NOTE | 2024-10-24 10:24 | PC.SS ---
Rola Mancia is a 49-year-old female admitted to Med Surg for Pyleoonephristis. SS conducted bedside contact with the patient to complete initial assessment and to discuss discharge planning. Role and reason explained. Patient confirmed demographic information. Patient identifies Kristofer Mcmanus [phone] as her surrogate decision maker. Pt states she lives with family and is able to complete all ADL?s independently. No need for any source of DME. Pts PCP is Dr. Yu last visit 2 months ago. Pharmacy of choice is [facility]. Discharge options discussed and the pt wishes to return home.? Family will provide transportation upon DC. No further intervention required at this time, clinical social work therapist would be available to address any further concerns. DC Plan: Home Contact: Kristofer Address: Confirmed on face sheet PCP: Ivan Yu ?
[2024-10-24 12:00] VITALS: BP 139/86; PULSE 62; RESP 18; TEMP 36.1; O2SAT 98
--- NOTE | 2024-10-24 15:52 | ESDS_ITS ---
<Statement entered by Christine Tavera DO - 10/24/24 17:06> I, Christine Tavera DO, attest that I was physically present for the christina portions of the service and evaluated the patient with the resident and I reviewed and discussed the case with the resident and agree with the resident's findings and plans of care as documented above <Statement entered by Sammie Summers MD - 10/24/24 16:15> Patient was seen and examined at bedside, reported significant improvement of her pain, denied passing any stones, denied any hematuria did not spike any fever. Patient was cleared for discharge to follow-up in outpatient settings with a urologist as prescribed cephalexin 500 mg 3 times daily for 5 more days, tamsulosin, Pyridium. - Patient's plan and care discussed with my attending, Dr. Liang Summers MD Internal Medicine PGY-3 Planned Discharge Date 10/24/24 DS: Providers Provider Date of admission: 10/23/24 16:04 Primary care physician: Ivan Yu MD Admitting Provider: Christine Tavera DO Attending Provider on Admission: Christine Tavera DO Attending Provider on DC: Christine Tavera DO Discharging Provider: Christine Tavera DO DS: Diagnosis Problem List Completed Was Problem List Reviewed/Reconciled?: Yes Hospital Course Hospital Course Hospital course: Mrs. Patterson is a 49 year old female with a past medical history of type 2 diabetes, thyroid cancer status post total thyroidectomy performed 05/23/2023, on levothyroxine presents in the ED with R sided flank pain. Patient was admitted for suspected pyelonephritis at [facility]. Patient was given pain meds, antibiotics and fluids during hospital stay. Patient's pain improved the following day, was discharged with antibiotics, pain medication, and flow max. More information is below. Imaging Findings: CT AP showed findings most consistent with right pyelonephritis and cystitis. Discharge Instructions Follow up with your PCP fouzia one week from discharge Use Meds as prescribed Please return to the ED if Your symptoms worsens Admission Diagnosis #Acute Pyelonephritis #UTI #Nephrolithiasis #thyroid cancer s/p total thyroidectomy performed 05/23/2023 #T2DM #microcytic anemia Patient plan of care was discussed with the attending physician, Dr. Liang Brownlee MD PGY-1 Time Spent with Patient Time attestation: Total time spent providing and/or coordinating discharge services: Time spent: Greater than 30 minutes Exam Vital Signs Temp Pulse Resp BP Pulse Ox O2 Del Method 97 F 62 18 139/86 H 98 Room Air 10/24/24 12:00 10/24/24 12:00 10/24/24 12:00 10/24/24 12:00 10/24/24 12:00 10/24/24 12:00 Narrative Exam General: No acute distress; A&Ox3 Skin: Warm, dry, intact, no obvious rash. HENT: NCAT, EOMI, not icteric. External ears normal. No rhinorrhea. Moist mucous membranes Cardiovascular: Regular rate and rhythm, no murmur, +S1/S2. Respiratory: Lungs CTAB GI: Soft, lower abd tenderness, non-distended. No guarding or rebound tenderness. : mild suprapubic tenderness, no R flank pain/tenderness Extremities: no edema, no cyanosis, no clubbing. Extremity pulses present Neuro: No focal deficits observed. Conversant, moving all extremities. No overt cerebellar signs/incoordination. Psychiatric: Cooperative, appropriate affect. Discharge Plan Plan Patient Disposition: HOME (Self Care) Patient condition on transfer: Stable Care Plan Goals: Follow up with your PCP fouzia one week from discharge Use Meds as prescribed Please return to the ED if Your symptoms worsens Prescriptions/Referrals Prescriptions/Med Rec: New tamsulosin 0.4 mg capsule 0.4 mg PO QDAY Qty: 7 0RF cephalexin 500 mg tablet 500 mg PO TID Qty: 14 0RF phenazopyridine [Pyridium] 200 mg tablet 200 mg PO TID PRN (Reason: pain) Qty: 10 0RF Continued levothyroxine 125 mcg tablet 125 mcg PO QDAY Patient Comments: TOME 1 TABLETA POR V A ORAL TODOS LOS D EN LA MA RACHELL EN EST MARISELA VAC O FOR 90 DAYS Ozempic 1 mg/dose (4 mg/3 mL) pen injector 1 mg subcut .once week Patient Comments: INJECT 1 MG SUBCUTANEOUSLY ONCE A WEEK Discontinued famotidine 20 mg tablet 20 mg PO QDAY Qty: 30 0RF Referrals: Yu,Ivan, MD [Primary Care Provider] - Patient/Caregiver Discharge Instructions Education Materials: Understanding Urinary Tract ..., ED Pyelonephritis, Female (Adult) Print Language: Nepalese Stand Alone Forms: Veronica Award Info., Patient Portal Info Letter, Work/Release Restrictions Discharge Order Discharge Orders: Discharge (Routine); Ordered 10/24/24 Ordered By: Sammie Summers Quality Discharge Quality Measures VTE prophylaxis
== END 2024-10-24 12:52 | disposition home or self-care (01) ==
LOC: SERX 15:20 → SERHOLD 16:09 → S3NX 10-24 10:14 → SERHOLD 10-27 11:27 → S3NX 10-27 11:28
PROVIDERS: Nurse Practitioner Primary Care; Admitting Provider Internal Medicine; Emergency Provider Family Medicine; PCP Specialist; Visit Provider Internal Medicine
DX: N10 Acute pyelonephritis (principal); N20.0 Calculus of kidney; E11.9 Type 2 diabetes mellitus without complications; D50.9 Iron deficiency anemia, unspecified; Z85.850 Personal history of malignant neoplasm of thyroid; N30.00 Acute cystitis without hematuria; Z87.440 Personal history of urinary (tract) infections
CPT/HCPCS: 36415; 74177; 80053; 81001; 81025; 82340; 83605; 83690; 83735; 84100; 84439; 84443; 85025; 85610; 85730; 87040; 87086; 96361; 96365; 96372; 96375; 99284; A4649; G0378; J0696; J1650; J1885; J2270; J2405; J2470; J7030; J7050; Q9967; A9270

== ENCOUNTER → 2024-10-25 | Outpatient (CLI) | payer BC, SELFPAY ==
--- NOTE | 2024-10-25 13:00 | XR_ITS ---
Examination: Bone densitometry Date and time of exam:October 25, 2024 1301 hours INDICATIONS: Hysterectomy age 34 diabetic, vitamin D 2 months Technique: Lumbar spine and hip total bone mineralization values of an calculated. Peak reference and age match control results have been displayed. Findings: Lumbar spine total bone mineralization is1.057 gm/cm2. This is 0.1 standard deviations above peak reference. This is 0.8 standard deviations above age-matched controls. Hip total bone mineralization is 0.942 gm/cm2 This is 0.1 standard deviations below peak reference. This is 0.2 standard deviations above age-matched controls Impression: There is normal mineralization based on lumbar spine measurements. There is normal mineralization based on hip measurements
== END | disposition home or self-care (01) ==
LOC: CDIM 12:08
PROVIDERS: PCP Specialist; Referring Provider Specialist; Visit Provider Specialist
DX: M85.80 Other specified disorders of bone density and structure, unspecified site (principal)
CPT/HCPCS: 77080

== ENCOUNTER → 2024-11-16 | Outpatient (CLI) | payer BC, SELFPAY ==
[2024-11-16 12:43] LABS: Collection Type, Urine Clean Catch
[2024-11-16 13:42] LABS: Bacteria,Urine 1+; Bilirubin,Urine Negative (Negative); Blood,Urine 3+ (Negative); Color,Urine Yellow (Lt Yel-Yel); Glucose, Urine Negative (Negative); Ketones,Urine Negative (Negative); Leukocyte Esterase,Urine Positive (Negative); Nitrite,Urine Negative (Negative); PH,Urine 6.0 (5.0-7.0); Protein,Urine 2+ (Neg - Trace); RBC,Urine 510 /hpf (0-3); Specific Gravity,Urine 1.026 (1.001-1.035); Squamous Epithelial Cell,Urine 1 /hpf (0-5); Urobilinogen,Urine Negative mg/dL (0.0-1.0); WBC,Urine 1790 /hpf (0-5)
[2024-11-16 13:45] LABS: Clarity,Urine Turbid (Clear/Hazy)
== END | disposition home or self-care (01) ==
LOC: SLDO 12:19
PROVIDERS: PCP Specialist; Referring Provider Specialist; Visit Provider Specialist
DX: R30.0 Dysuria (principal)
CPT/HCPCS: 81001; 87086

== ENCOUNTER → 2024-12-09 | Outpatient (CLI) | payer BC, SELFPAY ==
[2024-12-09 09:28] LABS: Calcium, Ionized 4.4 mg/dL (4.6-5.6)
[2024-12-09 09:32] LABS: Basophils # (Auto) 0.0 Thou/mm3 (0.0-0.2); Basophils % (Auto) 1 % (0-2.5); Eosinophils # (Auto) 0.1 Thou/mm3 (0.0-0.5); Eosinophils % (Auto) 2 % (0-10); Hematocrit 35.7 % (36.0-46.0); Hemoglobin 11.5 g/dL (12.0-16.0); Immature Granulocytes Auto 0.01 Thou/mm3 (0.00-0.00); Lymphocytes # (Auto) 1.4 Thou/mm3 (1.0-4.8); Lymphocytes % (Auto) 30 % (10-50); Mean Corpuscular HGB Conc 32.2 g/dl (31.0-37.0); Mean Corpuscular Hemoglobin 24.6 pg (25.0-35.0); Mean Corpuscular Volume 76 fL (80-100); Monocytes # (Auto) 0.3 Thou/mm3 (0.0-0.8); Monocytes % (Auto) 7 % (0-12); Neutrophils # (Auto) 2.8 Thou/mm3 (1.8-7.7); Neutrophils % (Auto) 61 % (37-80); Nucleated Red Blood Cell # 0.00 Thou/mm3 (0.00-0.00); Nucleated Red Blood Cell % 0 /100 WBC (0); Platelet Count 133 Thou/mm3 (140-440); RDW Standard Deviation 46.5 fL (36.4-46.3); Red Blood Count 4.67 Miln/mm3 (4.00-5.20); White Blood Count 4.6 Thou/mm3 (3.6-11.0)
[2024-12-09 09:54] LABS: Parathyroid Hormone Intact 52.4 pg/ml (18.5-88.0)
[2024-12-09 09:59] LABS: Vitamin D 25 Hydroxy Total 39.8 ng/mL (7.3-40.2)
[2024-12-09 10:04] LABS: Alanine Aminotransferase 19 U/L (10-49); Albumin, Serum 4.2 gm/dL (3.5-5.0); Albumin/Globulin Ratio 1.4 (1.2-2.2); Alkaline Phosphatase 97 U/L (46-116); Anion Gap 9 (7-16); Aspartate Amino Transferase 20 U/L (0-34); BUN/Creatinine Ratio 12 Ratio (12-20); Bilirubin,Total 0.4 mg/dL (0.3-1.2); Blood Urea Nitrogen 7 mg/dL (9-23); Calcium 8.9 mg/dL (8.3-10.6); Calcium (Corrected) 8.9 mg/dL (8.5-10.1); Carbon Dioxide 28.2 mMol/L (20.0-31.0); Chloride 105 mMol/L (98-107); Creatinine (Component) 0.6 mg/dL (0.6-1.3); Free T3 5.8 pg/mL (2.3-4.2); Free T4 (Free Thyroxine) 1.54 ng/dL (0.89-1.76); Globulin 2.9 gm/dL (2.3-3.5); Glucose 89 mg/dL (74-106); Iron 40 mcg/dL (50-170); Osmolality,Calculated 280 (275-295); Percent Iron Saturation 10 % (20-55); Potassium 4.1 mMol/L (3.4-5.1); Sodium 142 mMol/L (136-145); Thyroid Stimulating Hormone 0.19 uIU/mL (0.55-4.78); Total Iron Binding Capacity 397 mcg/dL (250-425); Total Protein 7.1 gm/dL (5.7-8.2); Unsaturated Iron Binding 357 (225-295); eGFR > 60 See Note
== END | disposition home or self-care (01) ==
LOC: COPL 08:47
PROVIDERS: PCP Specialist; Referring Provider Specialist; Visit Provider Specialist
DX: E21.3 Hyperparathyroidism, unspecified (principal); D50.9 Iron deficiency anemia, unspecified; N10 Acute pyelonephritis
CPT/HCPCS: 36415; 80053; 82306; 82330; 83540; 83550; 83970; 84439; 84443; 84481; 85025; 87086

== ENCOUNTER → 2025-01-27 | Outpatient (CLI) | payer BC, SELFPAY ==
[2025-01-27 09:10] LABS: Basophils # (Auto) 0.0 Thou/mm3 (0.0-0.2); Basophils % (Auto) 1 % (0-2.5); Eosinophils # (Auto) 0.1 Thou/mm3 (0.0-0.5); Eosinophils % (Auto) 2 % (0-10); Hematocrit 38.2 % (36.0-46.0); Hemoglobin 12.6 g/dL (12.0-16.0); Immature Granulocytes Auto 0.01 Thou/mm3 (0.00-0.00); Lymphocytes # (Auto) 1.4 Thou/mm3 (1.0-4.8); Lymphocytes % (Auto) 32 % (10-50); Mean Corpuscular HGB Conc 33.0 g/dl (31.0-37.0); Mean Corpuscular Hemoglobin 25.2 pg (25.0-35.0); Mean Corpuscular Volume 76 fL (80-100); Monocytes # (Auto) 0.3 Thou/mm3 (0.0-0.8); Monocytes % (Auto) 6 % (0-12); Neutrophils # (Auto) 2.6 Thou/mm3 (1.8-7.7); Neutrophils % (Auto) 59 % (37-80); Nucleated Red Blood Cell # 0.00 Thou/mm3 (0.00-0.00); Nucleated Red Blood Cell % 0 /100 WBC (0); Platelet Count 138 Thou/mm3 (140-440); RDW Standard Deviation 49.4 fL (36.4-46.3); Red Blood Count 5.00 Miln/mm3 (4.00-5.20); White Blood Count 4.4 Thou/mm3 (3.6-11.0)
[2025-01-27 09:23] LABS: Glucose Estimated Average 114 mg/dL (80-131); Hemoglobin A1C 5.6 % Hgb (4.8-6.0)
[2025-01-27 09:27] LABS: Parathyroid Hormone Intact 41.1 pg/ml (18.5-88.0)
[2025-01-27 09:33] LABS: Alanine Aminotransferase 20 U/L (10-49); Albumin, Serum 4.8 gm/dL (3.5-5.0); Albumin/Globulin Ratio 1.7 (1.2-2.2); Alkaline Phosphatase 108 U/L (46-116); Anion Gap 10 (7-16); Aspartate Amino Transferase 18 U/L (0-34); BUN/Creatinine Ratio 17 Ratio (12-20); Bilirubin,Total 0.5 mg/dL (0.3-1.2); Blood Urea Nitrogen 10 mg/dL (9-23); Calcium 8.9 mg/dL (8.3-10.6); Calcium (Corrected) 8.9 mg/dL (8.5-10.1); Carbon Dioxide 26.2 mMol/L (20.0-31.0); Cardiac Risk Estimate 4.1 RATIO (3.7-5.6); Chloride 106 mMol/L (98-107); Cholesterol 144 mg/dL (132-200); Creatinine (Component) 0.6 mg/dL (0.6-1.3); Free T4 (Free Thyroxine) 1.54 ng/dL (0.89-1.76); Globulin 2.8 gm/dL (2.3-3.5); Glucose 99 mg/dL (74-106); HDL Cholesterol 35 mg/dL (40-60); LDL Cholesterol,Calculated 90 mg/dL (0-130); Osmolality,Calculated 282 (275-295); Potassium 4.4 mMol/L (3.4-5.1); Sodium 142 mMol/L (136-145); Thyroid Stimulating Hormone 0.45 uIU/mL (0.55-4.78); Total Protein 7.6 gm/dL (5.7-8.2); Triglycerides 95 mg/dL (30-150); Vitamin D 25 Hydroxy Total 49.8 ng/mL (7.3-40.2); eGFR > 60 See Note
[2025-01-27 11:01] LABS: Creatinine MALB Rnd Ur 96 mg/dL (30-125); Microalbumin Creat Ratio 28 mg/gCrea (<30); Microalbumin, Random Urine 27 mg/L (0-300)
[2025-02-01 15:36] LABS: Thyroglobulin Antibodies <1 IU/mL (< OR = 1)
[2025-02-02 07:41] LABS: T3,Total* 94 ng/dL (76-181); Thyroglobulin 0.2 ng/mL
== END | disposition home or self-care (01) ==
LOC: COPL 08:12
PROVIDERS: PCP Specialist; Referring Provider Internal Medicine Endocrinology, Diabetes & Metabolism; Visit Provider Internal Medicine Endocrinology, Diabetes & Metabolism
DX: E11.65 Type 2 diabetes mellitus with hyperglycemia (principal); E03.9 Hypothyroidism, unspecified; E78.2 Mixed hyperlipidemia; C73 Malignant neoplasm of thyroid gland; E20.9 Hypoparathyroidism, unspecified
CPT/HCPCS: 36415; 80053; 80061; 82043; 82306; 82570; 83036; 83970; 84432; 84439; 84443; 84480; 85025; 86800

== ENCOUNTER → 2025-02-28 | Outpatient (CLI) | payer BC, SELFPAY ==
[2025-02-28 13:42] LABS: Basophils # (Auto) 0.0 Thou/mm3 (0.0-0.2); Basophils % (Auto) 1 % (0-2.5); Eosinophils # (Auto) 0.1 Thou/mm3 (0.0-0.5); Eosinophils % (Auto) 2 % (0-10); Hematocrit 39.7 % (36.0-46.0); Hemoglobin 12.6 g/dL (12.0-16.0); Immature Granulocytes Auto 0.01 Thou/mm3 (0.00-0.00); Lymphocytes # (Auto) 1.5 Thou/mm3 (1.0-4.8); Lymphocytes % (Auto) 36 % (10-50); Mean Corpuscular HGB Conc 31.7 g/dl (31.0-37.0); Mean Corpuscular Hemoglobin 25.3 pg (25.0-35.0); Mean Corpuscular Volume 80 fL (80-100); Monocytes # (Auto) 0.2 Thou/mm3 (0.0-0.8); Monocytes % (Auto) 6 % (0-12); Neutrophils # (Auto) 2.3 Thou/mm3 (1.8-7.7); Neutrophils % (Auto) 56 % (37-80); Nucleated Red Blood Cell # 0.00 Thou/mm3 (0.00-0.00); Nucleated Red Blood Cell % 0 /100 WBC (0); Platelet Count 146 Thou/mm3 (140-440); RDW Standard Deviation 48.0 fL (36.4-46.3); Red Blood Count 4.99 Miln/mm3 (4.00-5.20); White Blood Count 4.1 Thou/mm3 (3.6-11.0)
[2025-02-28 14:02] LABS: Alanine Aminotransferase 19 U/L (10-49); Albumin, Serum 4.9 gm/dL (3.5-5.0); Albumin/Globulin Ratio 1.4 (1.2-2.2); Alkaline Phosphatase 99 U/L (46-116); Anion Gap 11 (7-16); Aspartate Amino Transferase < 8 U/L (0-34); BUN/Creatinine Ratio 20 Ratio (12-20); Bilirubin,Total 0.4 mg/dL (0.3-1.2); Blood Urea Nitrogen 14 mg/dL (9-23); Calcium 9.3 mg/dL (8.3-10.6); Calcium (Corrected) 9.3 mg/dL (8.5-10.1); Carbon Dioxide 27.5 mMol/L (20.0-31.0); Chloride 104 mMol/L (98-107); Creatinine (Component) 0.7 mg/dL (0.6-1.3); Globulin 3.4 gm/dL (2.3-3.5); Glucose 89 mg/dL (74-106); Osmolality,Calculated 282 (275-295); Potassium 5.0 mMol/L (3.4-5.1); Sodium 142 mMol/L (136-145); Total Protein 8.3 gm/dL (5.7-8.2); eGFR > 60 See Note
[2025-02-28 14:04] LABS: Iron 73 mcg/dL (50-170); Percent Iron Saturation 19 % (20-55); Total Iron Binding Capacity 375 mcg/dL (250-425); Unsaturated Iron Binding 302 (225-295)
== END | disposition home or self-care (01) ==
LOC: COPL 11:52
PROVIDERS: PCP Specialist; Referring Provider Specialist; Visit Provider Specialist
DX: E78.9 Disorder of lipoprotein metabolism, unspecified (principal)
CPT/HCPCS: 36415; 80053; 83540; 83550; 85025